=== PATIENT | male | born 1955 | race African-American/Black ===

== ENCOUNTER 2019-06-20 11:30 | Emergency (ER) | payer MEDICARE ==
--- NOTE | 2019-06-20 12:29 | ED ---
Abdominal Pain/Male - HPI Summary HPI Summary: Pt. is a 64 y.o male who presents to the ER for a painful mass to his abdomen for about 4 weeks. Pt. states mass is getting larger. He denies fever, chills, chest pain, N/V. Pt. notes hx of HTN and hep C but states he stopped taking all his medications and does not see his PCP anymore. Symptoms are moderate in severity. Movement makes sxs worse. Nothing makes sxs better. - History of Current Complaint Chief Complaint: EDRashSkinAbscess Stated Complaint: KNOT ON ABDOMEN PER PT Time Seen by Provider: 06/20/19 12:11 Hx Obtained From: Patient Pain Intensity: 7 - Allergies/Home Medications Allergies/Adverse Reactions: Allergies Allergy/AdvReac Type Severity Reaction Status Date / Time acetaminophen [From Percocet] Allergy Unknown Verified 06/20/19 11:49 Reaction Details oxycodone [From Percocet] Allergy Unknown Verified 06/20/19 11:49 Reaction Details Home Medications: Home Medications NK [No Home Medications Reported] 06/20/19 [History Confirmed 06/20/19] PMH/Surg Hx/FS Hx/Imm Hx Previously Healthy: Yes Endocrine/Hematology History: Denies: Hx Diabetes Cardiovascular History: Reports: Hx Angina, Hx Hypertension Infectious Disease History: No Infectious Disease History: Reports: Hx Hepatitis - WAS TREATED Denies: Traveled Outside the [place] in Last 30 Days - Family History Known Family History: Positive: Non-Contributory - Social History Occupation: Unemployed Lives: With Family Alcohol Use: None Substance Use Type: Reports: None Smoking Status (MU): Current Every Day Smoker Type: Cigarettes Amount Used/How Often: 4-5 /DAY Have You Smoked in the Last Year: Yes Review of Systems Constitutional: Negative Negative: Fever, Chills Cardiovascular: Negative Respiratory: Negative Gastrointestinal: Other - painful mass RUQ Negative: Vomiting, Diarrhea All Other Systems Reviewed And Are Negative: Yes Physical Exam Triage Information Reviewed: Yes Vital Signs On Initial Exam: Initial Vitals Temp Pulse Resp BP Pulse Ox 97.6 F 103 16 144/82 97 06/20/19 11:42 06/20/19 11:42 06/20/19 11:42 06/20/19 11:42 06/20/19 11:42 Vital Signs Reviewed: Yes Appearance: Positive: Well-Appearing - Pt. lying in bed in NAD. Pleasant. Skin: Positive: Warm, Dry Head/Face: Positive: Normal Head/Face Inspection Eyes: Positive: Normal, EOMI Neck: Positive: Supple Respiratory/Lung Sounds: Positive: Clear to Auscultation, Breath Sounds Present Cardiovascular: Positive: Normal, RRR Abdomen Description: Positive: Other: - Mild distention. Palpable, tender mass about the size of a golf ball noted to the RUQ region. No overlying erythema. No drainge or wound. Musculoskeletal: Positive: Normal, Strength/ROM Intact Neurological: Positive: Normal, CN Intact II-III Psychiatric: Positive: Affect/Mood Appropriate Diagnostics - Vital Signs Vital Signs Temp Pulse Resp BP Pulse Ox 06/20/19 11:42 97.6 F 103 16 144/82 97 - Laboratory Result Diagrams: 06/20/19 13:10 06/20/19 13:10 Lab Statement: Any lab studies that have been ordered have been reviewed, and results considered in the medical decision making process. Abdominal Pain Male Course/Dx - Course Course Of Treatment: Pt. presenting with painful nodule to RUQ. He is afebrile. Pt. appears to be in a lot of pain with just changing from lying to sitting. Will obtain u/s for further evaluation. Suspect possible abscess vs mass. U/S per radiology: IMPRESSION: Palpable mass corresponds to a solid lesion measuring up to 2.1 cm and is. rounded. Will order CT and labs for further information. Labs show leukocytosis of [address] ab[address]./pelvis per radiology: IMPRESSION: Large mass in the dome of the liver with what appears to be extension into the. portal venous system consistent with tumor thrombus. This is suggestive of hepatocellular. carcinoma. Duane hepatis adenopathy is noted with portal caval lymph nodes and lymph nodes at the. celiac axis posterior to the caudate lobe measuring up to 3.7 cm. Subcutaneous nodule in the right upper quadrant measuring up to 2.1 cm suspicious for. metastatic disease. Case discussed with pt. Pt. notes he has no family or support in the area. Pt. still having a lot of pain. Concerned with pt.'s compliance to f.u in an outpt. setting. Case discussed with hospitalist, Dr. Richardson, who will admit for pain control and oncology consult. - Diagnoses Provider Diagnoses: Hepatocarcinoma Discharge - Sign-Out/Discharge Documenting (check all that apply): Patient Departure Patient Received Moderate/Deep Sedation with Procedure: No - Discharge Plan Condition: Stable Disposition: ADMITTED TO [facility] Referrals: Mona Richardson MD [Primary Care Provider] - - Billing Disposition and Condition Condition: STABLE Disposition: Admitted to [facility]
[2019-06-20 13:33] LABS: ABS Basophils 0.4 10^3/ul (0-0.2); ABS Lymphocytes 1.4 10^3/ul (1.0-4.8); ABS Monocytes 1.2 10^3/ul (0-0.8); ABS Neutrophils 11.9 10^3/ul (1.5-7.7); Eosinophil % 0.2 %; Hematocrit 34 % (42-52); Hemoglobin 11.1 g/dL (14.0-18.0); Lymphocyte % 9.5 %; Mean Corpuscular HGB Conc 32 g/dL (31-36); Mean Corpuscular Hemoglobin 28 pg (27-31); Mean Corpuscular Volume 87 fL (80-94); Mean Platelet Volume 6.6 fL (7.4-10.4); Nucleated Red Blood Cells % 0.1; Platelet Count 497 10^3/uL (150-450); Red Blood Count 3.94 10^6 /uL (4.18-5.48); Red Cell Distribution Width 18 % (10-15)
[2019-06-20 13:49] LABS: Albumin 3.8 g/dL (3.2-5.2); Albumin/Globulin Ratio 0.7 (1-3); BUN/Creatinine Ratio 12.8 (8-20); C Reactive Protein 22.12 mg/L (<8.01); Calcium 9.4 mg/dL (8.6-10.3); EGFR African American 82.4 (>60); EGFR Non-African American 68.1 (>60); Globulin 5.8 g/dL (2-4); Potassium 4.4 mmol/L (3.5-5.0); Total Bilirubin 0.4 mg/dL (0.2-1.0); Total Protein 9.6 g/dL (6.4-8.9)
[2019-06-20] MEDS ORDERED: Iohexol 300* (CONTRAST) 10 ML SDV IV ONE ×2 (14:11→14:31)
[2019-06-20] MEDS ORDERED: Morphine 4 MG/ML VIAL (1 ml) 4 MG/ML VIAL IV ONE (15:38)
[2019-06-20] MEDS ORDERED: Ondansetron INJ* 2 MG/ML VIAL IV ONE (15:38)
[2019-06-20 16:29] LABS: Urine Appearance Clear; Urine Bacteria Absent (Absent); Urine Bilirubin Negative (Negative); Urine Blood 1+ (Negative); Urine Color Yellow; Urine Glucose Negative (Negative); Urine Ketones Negative (Negative); Urine Nitrite Negative (Negative); Urine Protein Negative (Negative); Urine Red Blood Cell 1+(3-5/hpf) (Absent); Urine Urobilinogen Negative (Negative); Urine White Blood Cell Trace(0-5/hpf) (Absent)
[2019-06-20 18:44] VITALS: BP 0/0
--- NOTE | 2019-06-20 19:04 | CONS ---
CC: Dr. Mona Richardson * CONSULTATION REPORT: DATE OF CONSULT: 06/20/19 PRIMARY CARE PROVIDER: Dr. Mona Richardson. SERVICE REQUESTING CONSULTATION: Emergency room. REASON FOR CONSULT: Abnormal CT findings. SOURCE OF INFORMATION: History obtained from interview with the patient and review of past medical records. RELIABILITY: Fair. HISTORY OF PRESENT ILLNESS: This is a 64-year-old man with past medical history of HCV, in remission in 2015 per our records; hypertension; depression; suicide attempts in 2016, but in usual state of health, lives home alone, until approximately 1 month prior he said he started to notice a lump on his abdomen that grew over the last month, became more painful and made it difficult for him to sleep. He did schedule a followup with his PCP on 06/29/19; however, he found it so uncomfortable that he decided to seek care today in the emergency room. He notes he is not taking anything for the pain. He has had no nausea, vomiting, lightheadedness, chest pain, or shortness of breath. He does not note any night sweats and it is difficult for him at this time to appreciate whether he has had weight loss or not. PAST MEDICAL HISTORY: HCV, hypertension, iron deficiency, depression, suicidal ideation. The patient is on several other medications that he is unclear about and unable to tell me anything else about his past medical history. MEDICATIONS: Medications come from [employer] [facility]. He is unclear of his medications, but tells me he takes 5 total. ALLERGIES: ACETAMINOPHEN and OXYCODONE. FAMILY HISTORY: Unknown. SOCIAL HISTORY: Smokes 1 pack per day every 4 days for many years. No alcohol. Denies IV drug use, transfusions, or tattoos. REVIEW OF SYSTEMS: As per HPI; otherwise, all other systems negative. PHYSICAL EXAM: Vitals: In the emergency room, 148/82, heart rate is 90, respiratory rate is 18, he is 96% on room air, T-max 97.6. He is a thin- appearing man, sitting up, interactive, pleasant, in no apparent distress. His oropharynx is clear. He has moist mucous membranes. He has regular rate and rhythm. His lungs are clear. Extremities are warm and well perfused. He has no clubbing, cyanosis, or edema. He has a well-circumscribed approximately 2 cm subcutaneous lesion extending from his right upper quadrant consistent with finding on CT abdomen and pelvis. He is alert and oriented x3. His cranial nerves II through XII are intact. He has no apparent anxiety, agitation, or depression and is quite pleasant. DIAGNOSTIC STUDIES/LAB DATA: Labs reviewed, notable for white blood cell count 15, hemoglobin 11, platelets 497. His total bilirubin is 0.4, his AST is 30, his ALT is 8, his alk phos is 125, his CRP is 22. His urine is bland, except for 1+ blood. Data reviewed. CT abdomen and pelvis, impression: Large mass at the dome of the liver with what appears to be extension into the portal venous system consistent with tumor thrombosis suggestive of hepatocellular carcinoma. Duane hepatis adenopathy is noted with portal caval lymph nodes and lymph nodes at the celiac axis posterior to the caudate lobe measuring 3.7 cm, a subcutaneous nodule in the right upper quadrant measuring 2.1 cm suspicious for metastatic disease. He has an ultrasound of the abdomen: Palpable mass corresponds to solid lesion measuring 2.1 cm and is rounded. Chest x-ray: No active cardiopulmonary disease. ASSESSMENT AND PLAN: This is a 64-year-old man presenting with subcutaneous abdominal mass associated with abdominal pain, found with worrisome imaging consistent with hepatocellular carcinoma extension into his portal vein. The patient at this point does not wish to stay hospitalized. Extensive conversations were had encouraging to remain hospitalized to receive optimal medical care including pain control and further investigations for a newly identified suspicious hepatocellular carcinoma. The patient is adamant that he does not want to stay today as tomorrow on Saturday, he is able to see his 2 grandchildren, ages 7 and 5, which he finds very important and especially in light of receiving this new diagnosis. He said that he is perfectly willing to come back to the emergency room on Saturday. We did discuss the risks associated with doing this; however, he is willing to start oral anticoagulation including Eliquis upon leaving the emergency room, although declines Lovenox because of the needles. I discussed with oncology group, who believes they can arrange for fine needle aspiration of the subcutaneous nodule possibly as early on Saturday. A consultation referral to Dr. Torres's office was made and will be delivered to the patient as well. Medication for Eliquis 5 mg twice daily also sent to the patient's pharmacy. Again, the patient was encouraged to stay; he is declining. However, in light of his diagnosis and starting Eliquis, I do not think this warrants a departure against medical advice. Clearly, the patient is centered as tomorrow is quite important to him and I think he will be safe. He does not understand the risks associated with leaving at this point , which we had an extensive discussion about. TIME SPENT: Greater than 60 minutes were spent on this consultation, greater than half was spent [id number] with the patient. [id number]/[facility] #: [id number] DIEGO
== END 2019-06-20 18:42 | disposition left against medical advice (07) ==
LOC: ED 11:30
DX: C22.0 Liver cell carcinoma (principal); I10 Essential (primary) hypertension; Z88.6 Allergy status to analgesic agent; Z88.5 Allergy status to narcotic agent; F17.210 Nicotine dependence, cigarettes, uncomplicated
CPT/HCPCS: 36415; 71045; 74177; 76705; 80053; 81003; 81015; 82105; 85025; 86140; 87086; 96374; 96375; 99283; J2270; J2405; Q9967

== ENCOUNTER 2019-06-22 08:36 | Inpatient (IN) | payer MEDICARE ==
[2019-06-22] MEDS ORDERED: NS 0.9% 1000 ML** 1,000 ML IV ONE (09:15)
[2019-06-22] MEDS ORDERED: Ondansetron INJ* 2 MG/ML VIAL IV ONE (09:15)
[2019-06-22] MEDS ORDERED: Morphine 4 MG/ML VIAL (1 ml) 4 MG/ML VIAL IV ONE (09:15)
--- NOTE | 2019-06-22 09:16 | ED ---
Abdominal Pain/Male - HPI Summary HPI Summary: Pt. is a 64 y.o male who presents to the ER for ongoing abd. pain after being dx with a liver mass 2 days ago. Pt. seen in ED 06/20 for abd. mass and pain and was found to have likely hepatocarcinoma with a portal tumor thrombus. Pt. was offered admission for pain control and further diagnostic studies at that time but decided he wanted to go home to see his grandchildren. Oncology consulted at that time and pt. was placed on eliquis and was to call office today for apt. Pt. presents today because pain is uncontrolled. He denies fever, cp, sob, V/D. Sxs are moderate in severity. No current modifying factors. - History of Current Complaint Chief Complaint: EDAbdPain Stated Complaint: ABD PAIN PER PT Time Seen by Provider: 06/22/19 08:52 Hx Obtained From: Patient Pain Intensity: 7 - Allergies/Home Medications Allergies/Adverse Reactions: Allergies Allergy/AdvReac Type Severity Reaction Status Date / Time oxycodone [From Percocet] Allergy Unknown Verified 06/22/19 09:09 Reaction Details PMH/Surg Hx/FS Hx/Imm Hx Previously Healthy: Yes Endocrine/Hematology History: Denies: Hx Diabetes Cardiovascular History: Reports: Hx Angina, Hx Hypertension Infectious Disease History: No Infectious Disease History: Reports: Hx Hepatitis - WAS TREATED Denies: Traveled Outside the [place] in Last 30 Days - Family History Known Family History: Positive: Non-Contributory - Social History Occupation: Retired Lives: Alone Alcohol Use: None Substance Use Type: Reports: None Smoking Status (MU): Current Every Day Smoker Type: Cigarettes Amount Used/How Often: 4-5 /DAY Have You Smoked in the Last Year: Yes Review of Systems Constitutional: Negative Negative: Fever, Chills Cardiovascular: Negative Negative: Chest Pain Respiratory: Negative Negative: Shortness Of Breath Positive: Abdominal Pain. Negative: Vomiting, Diarrhea Genitourinary: Negative Neurological: Negative All Other Systems Reviewed And Are Negative: Yes Physical Exam Triage Information Reviewed: Yes Vital Signs On Initial Exam: Initial Vitals Temp Pulse Resp BP Pulse Ox 97.8 F 98 18 143/84 95 06/22/19 08:37 06/22/19 08:37 06/22/19 08:37 06/22/19 08:37 06/22/19 08:37 Vital Signs Reviewed: Yes Appearance: Positive: Pain Distress - Pt. sitting up in bed in NAD. Tearful. Pain with any movement. Skin: Positive: Warm, Dry Head/Face: Positive: Normal Head/Face Inspection Eyes: Positive: Normal, EOMI Neck: Positive: Supple Respiratory/Lung Sounds: Positive: Clear to Auscultation, Breath Sounds Present Cardiovascular: Positive: Normal, RRR Abdomen Description: Positive: Other: - Mass noted to RUQ with pain on palpation. Neurological: Positive: Normal, CN Intact II-III Psychiatric: Positive: Affect/Mood Appropriate Diagnostics - Vital Signs Vital Signs Temp Pulse Resp BP Pulse Ox 06/22/19 09:00 106 98 06/22/19 08:58 95 139/92 99 06/22/19 08:57 97 100 06/22/19 08:37 97.8 F 98 18 143/84 95 - Laboratory Result Diagrams: 06/22/19 09:51 06/22/19 09:51 Lab Statement: Any lab studies that have been ordered have been reviewed, and results considered in the medical decision making process. Abdominal Pain Male Course/Dx - Course Course Of Treatment: Pt. presenting with ongoing abd. pain and new findings of liver mass. Pt. started on IV pain medications and labs redrawn. Case discussed with Dr. Torres, oncology, who would like pt. admitted to hospitalist and he will consult. Case discussed with Dr. Woodard who will accept pt. to her service. - Diagnoses Provider Diagnoses: Hepatocarcinoma Discharge - Sign-Out/Discharge Documenting (check all that apply): Patient Departure Patient Received Moderate/Deep Sedation with Procedure: No - Discharge Plan Condition: Stable Disposition: ADMITTED TO [facility] - Billing Disposition and Condition Condition: STABLE Disposition: Admitted to [facility]
[2019-06-22 10:14] LABS: ABS Basophils 0.5 10^3/ul (0-0.2); ABS Monocytes 1.1 10^3/ul (0-0.8); ABS Neutrophils 10.1 10^3/ul (1.5-7.7); Eosinophil % 0.1 %; Hematocrit 30 % (42-52); Hemoglobin 10.1 g/dL (14.0-18.0); Lymphocyte % 8.2 %; Mean Corpuscular HGB Conc 33 g/dL (31-36); Mean Corpuscular Hemoglobin 29 pg (27-31); Mean Corpuscular Volume 88 fL (80-94); Mean Platelet Volume 6.9 fL (7.4-10.4); Nucleated Red Blood Cells % 0.1; Platelet Count 432 10^3/uL (150-450); Red Blood Count 3.44 10^6 /uL (4.18-5.48); Red Cell Distribution Width 18 % (10-15); White Blood Count 12.8 10^3/uL (3.5-10.8)
[2019-06-22 10:18] LABS: ALT 7 U/L (7-52); AST 27 U/L (13-39); Albumin 3.4 g/dL (3.2-5.2); Albumin/Globulin Ratio 0.7 (1-3); Alkaline Phosphatase 111 U/L (34-104); Anion Gap 6 mmol/L (2-11); BUN/Creatinine Ratio 10.8 (8-20); Blood Urea Nitrogen 11 mg/dL (6-24); C Reactive Protein 31.53 mg/L (<8.01); CO2 Carbon Dioxide 24 mmol/L (22-32); Calcium 8.7 mg/dL (8.6-10.3); Chloride 101 mmol/L (101-111); EGFR Non-African American 73.5 (>60); Globulin 4.8 g/dL (2-4); Glucose 171 mg/dL (70-100); Potassium 3.9 mmol/L (3.5-5.0); Sodium 131 mmol/L (135-145); Total Protein 8.2 g/dL (6.4-8.9)
[2019-06-22] MEDS ORDERED: Morphine 4 MG/ML VIAL (1 ml) 4 MG/ML VIAL IV PRN (11:50)
[2019-06-22] MEDS ORDERED: Acetaminophen TAB* 325 MG PO PRN (11:52)
[2019-06-22] MEDS ORDERED: Ondansetron INJ* 2 MG/ML VIAL IV PRN (11:55)
[2019-06-22 12:08] LABS: Urine Appearance Cloudy; Urine Bacteria Absent (Absent); Urine Bilirubin Negative (Negative); Urine Blood 1+ (Negative); Urine Color Yellow; Urine Glucose Negative (Negative); Urine Ketones Negative (Negative); Urine Nitrite Negative (Negative); Urine Protein Negative (Negative); Urine Red Blood Cell 2+(6-10/hpf) (Absent); Urine Specific Gravity 1.009 (1.010-1.030); Urine Urobilinogen Negative (Negative); Urine White Blood Cell Trace(0-5/hpf) (Absent)
[2019-06-22] MEDS: NS 0.9% 1000 ML** 1,000 ML IV SCH (12:53)
[2019-06-22] MEDS: HYDROcodone/ACETAMIN 5-325 MG* 1 TAB PO PRN ×2 (14:30→19:36)
--- NOTE | 2019-06-22 19:31 | HP ---
CC: Dr. Mona Richardson; Dr. Torres * HISTORY AND PHYSICAL: DATE OF ADMISSION: 06/22/19 TIME OF EVALUATION: 11:40 a.m. PRIMARY CARE PROVIDER: Mona Richardson MD. CONSULTING ONCOLOGIST: Dr. Torres. CHIEF COMPLAINT: "I came back, the pain was too much." HISTORY OF PRESENT ILLNESS: Mr. Hoang is a 64-year-old male with a past medical history of hepatitis C, status post treatment; hypertension, iron deficiency, depression, suicidal ideation who presented to the emergency room with complaints of abdominal pain. He states that about a month ago, he noticed a lump growing on the right side of his abdomen and it has become larger and larger and the pain has made it hard for him to sleep. He has scheduled followup with his primary care provider for 06/29/19, but as his symptoms became worse, he presented to the emergency room at that time. His workup included a CT of the abdomen and pelvis that showed a large mass in the dome of the liver with what appears to be extension into the portal venous system consistent with a tumor thrombus. There was also a subcutaneous nodule in the right upper quadrant measuring up to 2.1 cm, suspicious for metastatic disease. There is duane hepatis adenopathy noted within the portacaval lymph nodes and lymph nodes of the celiac axis posterior to the caudate lobe measured up to 3.7 cm. The patient was offered admission at that time for pain control, anticoagulation , and further workup, but he declined. He was discharged from the emergency room and he was supposed to call Dr. Torres' s office today to schedule an appointment and to make arrangements for a biopsy , but he states that the pain became unbearable last night, so he decided to come to the emergency room and accept admission at this time. He denies fever, chills, nausea, vomiting, diarrhea, jaundice. He is not aware of any weight loss and we do not have any other admissions in the system that documented his weight. PAST MEDICAL HISTORY: 1. Hepatitis C. The patient states that he was diagnosed "a while ago" and was treated with Harvoni by Dr. Murphy. His last hepatitis C RNA in our system was undetectable in May 2015. The hepatitis C genotype was reported as 1b. 2. Hypertension. 3. Iron deficiency. 4. Depression. 5. Suicidal ideation. MEDICATION LIST: The patient was prescribed apixaban on his visit to the emergency room, but he has not filled it in and he states that he is not taking anything else. ALLERGIES: The patient has an unknown reaction to OXYCODONE. FAMILY HISTORY: Unknown. SOCIAL HISTORY: He is a smoker, 1 pack per day for many years. Denies alcohol use. No history of IV drug use, blood transfusions, or tattoos. REVIEW OF SYSTEMS: A 14-point review of systems was performed, and all the pertinent negative and positive findings are in the HPI. PHYSICAL EXAMINATION GENERAL: The patient is a pleasant elderly gentleman, sitting up in the stretcher, in no acute distress. VITAL SIGNS: Temperature 97.8, heart rate is 98, respiratory rate is 18, oxygen saturation 99% on room air, blood pressure is 139/92. HEENT: Pupils are equal. Moist mucous membranes. CHEST: Breath sounds bilaterally with no added sounds. CVS: Normal S1, S2. Regular rate and rhythm. ABDOMEN: Shows a protruding subcutaneous lesion on his right upper quadrant. The liver is enlarged and tender to palpation, but there is no guarding, no rebound. Bowel sounds are present. NEURO: He is alert and oriented x3. Able to move all 4 extremities. LABORATORY AND IMAGING DATA: CBC showed a WBC of 12.8 with hemoglobin of 10.1 , hematocrit of 30, platelets of 432 with 79% neutrophils. Chemistry showed a sodium of 131, potassium of 3.9, chloride of 101, bicarbonate 24, BUN of 11, creatinine of 1.02, glucose of 171. Lactic acid is 2.2. Calcium is 8.7. LFTs are normal except for alk phos of 111. CRP is 31.5. Urinalysis showed 1+ blood , 2+ rbc's. CT of the abdomen and pelvis with contrast done on 06/20/19 showed a large mass in the dome of the liver measuring 6.4 x 6.2 x 10.6 cm with what appears to be extension in the portal venous system, consistent with a tumor thrombus. This is suggestive of hepatocellular carcinoma. Duane hepatis adenopathy is noted with portacaval lymph nodes and lymph nodes at the celiac axis posterior to the caudate lobe measuring up to 3.7 cm. Subcutaneous nodule in the right upper quadrant measuring up to 2.1 cm suspicious for metastatic disease. ASSESSMENT AND PLAN: Mr. Hoang is a 64-year-old male with a past medical history of hepatitis C, hypertension, iron deficiency, depression, suicidal ideation who presented to the emergency room with complaints of abdominal pain, found to have a large liver mass suggestive of hepatocellular carcinoma. 1. Liver mass. The patient will be admitted for pain management and further workup. He was prescribed Eliquis on 06/20/19, but he did not fill this prescription. We will not start anticoagulation for now until we make arrangements for his liver biopsy. With his history of hepatitis C, it is very likely that this is the hepatocellular carcinoma and we will get oncology involved after the biopsy is performed. We will continue pain medication and after the biopsy, we should be able to start anticoagulation. 2. DVT prophylaxis. The patient has a score of 4 on the DVT Prophylaxis Risk Assessment Guide and he will have SCDs for now in preparation for biopsy tomorrow and after biopsy, he can be on full anticoagulation for his portal venous system thrombosis. 3. Code status is full. TIME SPENT: Approximately 60 minutes was spent with the patient interview, medical records review, physical examination to complete this admission, more than half of this time was spent [id number] with the patient and coordination of care. [id number]/[facility] #: [id number] [place]
[2019-06-22] MEDS: Enoxaparin(*) 60 MG/0.6 ML SYR SUBCUT SCH (19:37)
--- NOTE | 2019-06-22 22:10 | CONS ---
CONSULTATION REPORT: DATE OF CONSULT: 06/22/19 REASON FOR CONSULT: Hepatic mass. HISTORY OF PRESENT ILLNESS: Mr. Hoang is a 64-year-old male, whose appearance is pale. He developed pain on his right side approximately 6 weeks ago. Pain was fairly severe, but he did not want to go see a doctor. He thought he would, "tough it out." Pain got worse and worse. He started to have to sleep with a pillow on his side and then the pillow stopped working. He plays basketball and thought that he had injury with ball sports initially. Along with the pain, he started to lose his appetite. He used to have 3 square meals a day and then he went down to his eating some toast and a coffee for the whole day. He has lost approximately 25 pounds. Progressive pain caused him to come to the emergency room. He presented on 06/20/[address] and he had a CT scan of the abdomen and pelvis. Scan showed a large hepatic mass, 6.5 x 6.2 x 10.6 cm in AP dimension, located in the dome of the right liver, it extends into the portal venous system consistent with tumor thrombus. There is an enlarged celiac axis lymph node at 3.7 cm and a subcutaneous nodule in the right upper quadrant 2.1 cm corresponding to his pain. On Saturday, he was offered admission, but wanted to go home and spend some time with his grandchildren after being in the emergency room all day. He went home, but then pain continued to progress. The medicines he had were not working, so he came back to the emergency room. Because of the tumor thrombus, he was sent home on Eliquis for use as anticoagulation because he did not want to use the needle injections with Lovenox. On re-presentation, he was admitted for further evaluation. In addition to the CT scan, he had a chest x-ray without active cardiopulmonary disease. Blood work includes a white count elevated at 15,000, hemoglobin 10.1, MCV 88, RDW 18, platelets 432 and he has a left shift. Sodium is 131, glucose 171, lactic acid slightly elevated at 2.2, he has normal bilirubin at 0.4, normal AST and ALT with an alkaline phosphatase of 111 and elevated C-reactive protein , albumin 3.4. PAST MEDICAL HISTORY: 1. Hepatitis C, treated with Dr. Murphy and disease-free since 2014. 2. Hypertension. 3. Depression. 4. History of iron deficiency. MEDICATIONS: Medications on admission are: 1. Acetaminophen. 2. Percocet. 3. Morphine. 4. Ondansetron. 5. Normal saline. FAMILY HISTORY: Father of cancer and mother of cancer, but he does not know what kind; 3 siblings, no malignancy. Children are healthy. SOCIAL HISTORY: Smokes 1 pack cigarettes every 4 days, denies drinking or IV drug use. He is . His in July 2016 of leukemia. 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 REVIEW OF SYSTEMS: Fourteen-point review of systems notable for above plus fatigue over the past 4 weeks, otherwise negative. PHYSICAL EXAM: Temperature 97.6, BP 120/63, heart rate 88, respirations 16, O2 sat 96%. HEENT: Mucosa moist. No lesions. No cervical or supraclavicular lymphadenopathy. Lungs are clear to auscultation. Heart: Distant S1, S2. No murmurs, rubs, or gallops. Abdomen: He has a palpable mass in the right upper quadrant that is tender, mobile from the abdominal wall, but adherent to the skin. Abdominal exam otherwise nontender, again I cannot palpate the spleen. The liver edge is palpable. He has good bowel sounds. No inguinal lymphadenopathy. Extremities with good circulation and no edema. Neurologic: Alert and oriented x3 and grossly nonfocal. LABS: As noted above. ASSESSMENT: A 64-year-old male who presents with a large hepatic mass, celiac lymph node, and a subcutaneous nodule. Course is complicated by potential tumor thrombus extending into the portal venous system. Differential diagnosis includes hepatocellular cancer as most likely diagnosis, cholangiocarcinoma, metastatic upper gastrointestinal such as esophageal cancer , lung cancer. PLAN: 1. Fine needle aspiration tomorrow of the subcutaneous nodule for diagnosis. I would also consult Surgery as I think that most effective pain control to be removal of the chest wall lesion. 2. Therapy for HCC may include embolization to the primary tumor and systemic therapy as consolidation; first line sorafenib and if cholangiocarcinoma or metastatic adenocarcinoma, chemotherapy. 3. Until we have a diagnosis, I think anticoagulation is reasonable, but inhouse can do Lovenox 1 mg/kg subcu b.i.d. 4. Complete staging for HCC. Check AFP and check CT scan of chest, as well as PCR for HCV. 5. Leukocytosis may be tumor response and if so is a poor prognostic indicator. 6. We will continue to follow up through the hospitalization. [id number]/[facility] #: [id number] [place]
[2019-06-23] MEDS: NS 0.9% 1000 ML** 1,000 ML IV SCH ×2 (02:01→15:45)
[2019-06-23] MEDS: HYDROcodone/ACETAMIN 5-325 MG* 1 TAB PO PRN ×2 (02:15→14:14)
[2019-06-23] MEDS: Enoxaparin(*) 60 MG/0.6 ML SYR SUBCUT SCH (08:57)
[2019-06-23] MEDS ORDERED: LORazepam TAB(*) 1 MG PO ONE (13:51)
[2019-06-23 16:28] LABS: Albumin 3.3 g/dL (3.2-5.2); Calcium 8.4 mg/dL (8.6-10.3); Potassium 4.1 mmol/L (3.5-5.0); Total Bilirubin 0.4 mg/dL (0.2-1.0)
[2019-06-23 16:32] LABS: ABS Basophils 0.3 10^3/ul (0-0.2); ABS Lymphocytes 1.1 10^3/ul (1.0-4.8); ABS Neutrophils 10.7 10^3/ul (1.5-7.7); Activated Partial Thrombo Time 44.1 seconds (26.0-38.0); Eosinophil % 0.2 %; Hematocrit 28 % (42-52); Hemoglobin 9.7 g/dL (14.0-18.0); INR 1.28 (0.82-1.09); Mean Corpuscular HGB Conc 34 g/dL (31-36); Mean Corpuscular Hemoglobin 30 pg (27-31); Mean Corpuscular Volume 87 fL (80-94); Mean Platelet Volume 7.1 fL (7.4-10.4); Nucleated Red Blood Cells % 0.1; Platelet Count 426 10^3/uL (150-450); Red Blood Count 3.25 10^6 /uL (4.18-5.48); Red Cell Distribution Width 18 % (10-15); White Blood Count 13.2 10^3/uL (3.5-10.8)
[2019-06-23 16:34] LABS: Albumin/Globulin Ratio 0.7 (1-3); BUN/Creatinine Ratio 9.1 (8-20); EGFR African American 81.5 (>60); EGFR Non-African American 67.4 (>60); Globulin 4.8 g/dL (2-4); Total Protein 8.1 g/dL (6.4-8.9)
--- NOTE | 2019-06-23 18:46 | CONS ---
CC: Mona Richardson MD; Rodrigo Stinson MD * SURGICAL CONSULTATION REPORT: DATE OF CONSULT: 06/23/19 REASON FOR CONSULT: Abdominal wall mass. HISTORY OF PRESENT ILLNESS: Mr. Hoang is a 64-year-old gentleman who was admitted to [facility] on 06/22/19 with abdominal pain localized to a mass in the right upper quadrant. He had been admitted after emergency room workup reveals a large mass in the dome of the liver, extension into portal venous system, consistent with tumor thrombus. Imaging also revealed a 2.1 cm subcutaneous nodule in the right upper quadrant suspicious for metastatic disease. He was admitted for pain control, anticoagulation and additional workup. The patient had been seen in the emergency room on 06/20/19 at which time he had initially presented with the painful mass in the abdomen and he had evaluation with ultrasound and then CT scan. The CT scan had demonstrated the aforementioned mass in the dome of the liver measuring 6.4 x 6.2 cm x 10.6 cm with portal venous extension consistent with thrombus, suspicious for hepatocellular carcinoma. At that time, he had been recommended to be admitted ; however, the patient apparently refused admission and was discharged with Eliquis. He apparently never filled the prescription and never took the medication. Today, he reports he had a biopsy done of the mass. He understands he has cancer. He would accept excision of the mass, but wants to be "put out." PAST MEDICAL HISTORY: Hepatitis C, hypertension, iron deficiency, depression, suicidal ideation. PAST SURGICAL HISTORY: Laparoscopic cholecystectomy. MEDICATIONS: Home medication: Eliquis. Active Medications: 1. Morphine. 2. [place]. 3. Tylenol. 4. Zofran. 5. Pepcid. ALLERGIES: Unknown reaction to OXYCODONE. FAMILY HISTORY: Parents have , he thinks may have been diagnosed with cancer. He has 2 sons that are alive and well. SOCIAL HISTORY: Tobacco use for years. Denies alcohol or drug use. 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 He is and his of leukemia. REVIEW OF SYSTEMS: He denies fevers, chills, night sweats. He reports a 30- pound weight loss over 3 or 4 months. He denies nausea or vomiting. He denies constipation, diarrhea or blood per rectum. He reports he has "a little diabetes." He denies any thyroid disease. He denies strokes or seizures. He denies chest pain or shortness of breath. PHYSICAL EXAM: His temperature is 98 degrees, blood pressure 115/74, pulse 83, respirations 16, O2 sat 99% on room air. Head is normocephalic and atraumatic. Sclerae are anicteric. Mucous membranes are moist. His abdomen has healed scars from prior laparoscopic surgery. There is a 2 to 3 cm subcutaneous mass palpable in the right upper quadrant. It is mobile and tender. Remaining portions of the abdomen is soft and nontender. Extremities are warm without edema. DIAGNOSTIC STUDIES/LAB DATA: His WBC is 13.2, hemoglobin 9.7, hematocrit 28, platelets 428. Chemistries: Sodium 133, potassium 4.1, chloride 105, bicarb 23 , BUN 10, creatinine 1.1, glucose 121. Lactate was 1.3. Bilirubin, ALT and AST are normal. Alk phos elevated at 107. Albumin is 3.3. CT imaging of the chest was reviewed and findings significant for the above as well as the bibasilar pulmonary nodule up to 0.7 cm. IMPRESSION: A 64-year-old male with newly diagnosed hepatocellular carcinoma with painful right upper quadrant soft tissue mass consistent with metastatic lesion for which excision has been requested for pain control. PLAN/RECOMMENDATIONS: I discussed the finding with the patient. I discussed the excision and explained the indications for risks, benefits and alternatives. We discussed the need for anesthesia and again, he is requesting to be asleep for the procedure. I explained that he would be working with the anesthesiologist in order to achieve appropriate comfort during the procedure; however, I think this could reasonably be done under local MAC. OR availability is as soon as 06/24/19. Dr. Lea will be available to do the case and I did discuss this with the patient as well and he is in agreement. He will be made NPO prior to surgery and his anticoagulation should continued to be held. [id number]/[facility] #: [id number] [facility]AL HOSPITALLuis Fernando
--- NOTE | 2019-06-23 19:39 | PN ---
<Trevon Boyer - Last Filed: 06/23/19 19:29> Subjective Date of Service: 06/23/19 Interval History: Patient does not have any fresh complain but he says he has pain in RUQ.( CONTROLLED WITH MORPHINE). He is afraid of needles and wants it to be avoided. Objective Active Medications: Acetaminophen (Tylenol Tab*) 650 mg PO Q6H PRN PRN Reason: Mild pain/fever> 100.4 Hydrocodone Bitart/Acetaminophen ([place] 5-325 Tab*) 1 tab PO Q4H PRN PRN Reason: Moderate Pain Last Admin: 06/23/19 14:14 Dose: 1 tab Famotidine (Pepcid Iv*) 20 mg IV ONCE ONE Stop: 06/24/19 08:01 Morphine Sulfate (Morphine 4 Mg/Ml Vial (1 Ml)) 4 mg IV Q4H PRN PRN Reason: SEVERE PAIN Last Admin: 06/22/19 12:46 Dose: 4 mg Ondansetron HCl (Zofran Inj*) 4 mg IV Q6H PRN PRN Reason: NAUSEA Vital Signs - 8 hr 06/23/19 06/23/19 06/23/19 11:51 14:14 16:03 Temperature 98.3 F Pulse Rate 85 Respiratory 18 18 18 Rate Blood Pressure 120/60 (mmHg) O2 Sat by Pulse 98 Oximetry 06/23/19 16:21 Temperature 98.0 F Pulse Rate 83 Respiratory 16 Rate Blood Pressure 115/74 (mmHg) O2 Sat by Pulse 99 Oximetry Oxygen Devices in Use Now: None Exam: Patient is sitting on his bed and eating lunch. HEENT: Normocephalic, Atraumatic and pupils are normal. Heart: Normal heart sound heard. Lungs: Normal breath sound heard. Abdomen: Small swelling in RUQ- Tenderness present, not mobile, adhered to skin. Abdomen was firm but no guarding. Normal bowel sound heard. Neuro: Alert, conscious and oriented. Moving all 4 extremities. Extremity: Normal Result Diagrams: 06/23/19 15:59 06/23/19 15:59 Assess/Plan/Problems-Billing Assessment: 64 y/o M with PMH of Hepatitis c(s/p cured), HTN, Iron deficiency anemia, depression presented with abdominal pain for a month with increased severity for 1 day, loss of appetite and weight loss. He also noticed lump in has right upper abdomen which is painful. Admitted with diagnosis of suspected Hepatocellular carcinoma with metastasis. - Patient Problems (1) Hepatocellular carcinoma Current Visit: Yes Status: Acute Code(s): C22.0 - LIVER CELL CARCINOMA SNOMED Code(s): 756665435 Comment: Complain of abdominal pain and weight loss 30 pound over 3-4 month. Lump in RUQ. FNAC done today. waiting for the result. Planned for excision of nodule tomorrow. (2) Portal vein thrombosis Current Visit: Yes Status: Acute Code(s): I81 - PORTAL VEIN THROMBOSIS SNOMED Code(s): 69078802 Comment: Seen on CT. Anticoagulation on hold for surgery. (3) DVT prophylaxis Current Visit: Yes Status: Acute Code(s): Z29.9 - ENCOUNTER FOR PROPHYLACTIC MEASURES, UNSPECIFIED SNOMED Code(s): 152618187 Comment: Ambulation. Anticoagulation on hold for surgery. (4) Full code status Current Visit: Yes Status: Acute Code(s): Z78.9 - OTHER SPECIFIED HEALTH STATUS SNOMED Code(s): 401143283 Status and Disposition: Medicine inpatient. Attending: Daphnie Escobar <Daphnie Escobar - Last Filed: 06/23/19 20:31> Objective Active Medications: Acetaminophen (Tylenol Tab*) 650 mg PO Q6H PRN PRN Reason: Mild pain/fever> 100.4 Hydrocodone Bitart/Acetaminophen ([place] 5-325 Tab*) 1 tab PO Q4H PRN PRN Reason: Moderate Pain Last Admin: 06/23/19 14:14 Dose: 1 tab Famotidine (Pepcid Iv*) 20 mg IV ONCE ONE Stop: 06/24/19 08:01 Morphine Sulfate (Morphine 4 Mg/Ml Vial (1 Ml)) 4 mg IV Q4H PRN PRN Reason: SEVERE PAIN Last Admin: 06/22/19 12:46 Dose: 4 mg Ondansetron HCl (Zofran Inj*) 4 mg IV Q6H PRN PRN Reason: NAUSEA Vital Signs - 8 hr 06/23/19 06/23/19 06/23/19 14:14 16:03 16:21 Temperature 98.0 F Pulse Rate 83 Respiratory 18 18 16 Rate Blood Pressure 115/74 (mmHg) O2 Sat by Pulse 99 Oximetry 06/23/19 19:45 Temperature 97.6 F Pulse Rate 80 Respiratory 18 Rate Blood Pressure 120/55 (mmHg) O2 Sat by Pulse 97 Oximetry Result Diagrams: 06/23/19 15:59 06/23/19 15:59 Assess/Plan/Problems-Billing Admitted yesterday. Reports improvement in pain since morphine. Only has pain over subcutaneous nodule. Eating well and having normal BMs. Reports significant fear of needles. Declined blood draws and US guided FNA today. After speaking with providers, amenable to bedside FNA by pathology for tissue diagnosis. Also states he is "ready to " if he has to and would be amenable to pall care consult for GOC discussion. vss thin man in NAD, alert and interactive rrr no mgr ctab soft, nontender, +hepatomegaly; 2cm subq tender nodule over RUQ; no pulsations no LE edema CT Chest with bibasilar predominant pulmonary nodularity concerning for metastatic disease. Upper abdominal lymphadenopathy. A/P: 64M with HCV with SVR, HTN, MDD c/b SI, re-presents with abdominal pain, with imaging concerning for metastatic liver cancer. Pending tissue dx. # Liver mass. - f/u biopsy taken 06/23 - cont pain control with bowel regimen prn - consult palliative care for GOC discussion - to undergo excision of mass by surgery 06/24 for symptom control # Portal vein thrombosis. - patient refuses any subq injections - can start on NOAC when no longer undergoing procedures No DVT PPx given OR tomorrow. Attestation Documenting Resident: Rosalind Supervising Physician: Shawn Attestation: This service has been performed in part by a resident under the direction of a teaching physician.IShawn, performed the service, or was physically present during the critical, or culver portions of the service, furnished by the resident. I participated in the management of the patient.
[2019-06-23] MEDS ORDERED: Magnesium Hydroxide LIQ* 30 ML UDC PO PRN (20:32)
[2019-06-23] MEDS ORDERED: Senna TAB PO PRN (20:32)
[2019-06-24] MEDS: HYDROcodone/ACETAMIN 5-325 MG* 1 TAB PO PRN ×2 (03:05→15:41)
[2019-06-24] MEDS ORDERED: HYDROcodone/ACETAMIN 5-325 MG* 1 TAB PO PRN (06:02)
[2019-06-24] MEDS ORDERED: HYDROmorphone INJ1* 1 MG/ML SYRINGE IV PRN (06:02)
[2019-06-24] MEDS ORDERED: DiMENhydriNATE IV* 50 MG/ML VIAL IV PUSH PRN (06:02)
[2019-06-24] MEDS ORDERED: Naloxone* 0.4 MG/ML 1 ML VIAL IV PRN (06:02)
[2019-06-24] MEDS ORDERED: fentaNYL* 50 MCG/ML 2 ML VIAL (100 MCG VIAL) IV PRN (06:02)
[2019-06-24] MEDS ORDERED: PROCHLORPERAZINE INJ 5 MG/ML 2 ML VIAL IV PRN (06:02)
[2019-06-24] MEDS ORDERED: Dexamethasone TAB* 4 MG PO ONE (06:05)
[2019-06-24] MEDS ORDERED: Ondansetron ODT TAB* 4 MG PO ONE (06:05)
[2019-06-24] MEDS ORDERED: Buffered Lidocaine 1% SYRIN* 1 ML/SYRINGE INTRADERM ONE (06:05)
[2019-06-24] MEDS: Lactated Ringers 1000 ML Bag* 1,000 ML IV SCH ×3 (07:45→20:09)
[2019-06-24] MEDS ORDERED: Famotidine IV* 10 MG/ML 2 ML (20 mg) IV ONE (08:00)
[2019-06-24] MEDS ORDERED: Dexamethasone TAB* 4 MG ONE (10:09)
[2019-06-24] MEDS ORDERED: Ondansetron ODT TAB* 4 MG ONE (10:09)
[2019-06-24] MEDS ORDERED: Famotidine IV* 10 MG/ML 2 ML (20 mg) ONE (10:09)
[2019-06-24] MEDS ORDERED: Midazolam* 1 MG/ML 5 ML VIAL (5 MG) ONE (10:20)
[2019-06-24] MEDS ORDERED: fentaNYL* 50 MCG/ML 2 ML VIAL (100 MCG VIAL) ONE (10:20)
[2019-06-24] MEDS ORDERED: KETAMINE HCL* 50 MG/ML 10 ML VIAL ONE (10:20)
[2019-06-24] MEDS ORDERED: ceFAZolin 2 GM in NS PREMIX(*) 2 GM/100 ML BAG IVPB ONE (11:18)
[2019-06-24] MEDS ORDERED: Bupivacaine 0.25% SDV PF* 10 ML VIAL INJ ONE (11:58)
[2019-06-24] MEDS ORDERED: Propofol* 500 MG/50 ML BTL ONE (12:20)
[2019-06-24] MEDS ORDERED: Propofol* 10 MG/ML 20 ML BTL ONE (12:20)
--- NOTE | 2019-06-24 12:29 | OP ---
Operative Report - Blank - Operative Report Date of Operation: 06/24/19 Note: Operative Note Preoperative Dx: right abdominal subcutaneous mass Postoperative Dx: right abdominal subcutaneous mass Procedure: excision and biopsy of subcutaneous mass Anesthesia: MAC Surgeon: Venu Assist: Freida HANEY EBL: 1cc Specimen: right abdominal subcutaneous mass Fluids: 1L LR Drains: none Findings: dictated
--- NOTE | 2019-06-24 14:39 | OP ---
DATE OF OPERATION: 06/24/19 - ROOM #[id number] DATE OF : 55 SURGEON: Eren Lea MD. PRE-OP DIAGNOSIS: Subcutaneous mass, right upper abdomen. POST-OP DIAGNOSIS: Subcutaneous mass, right upper abdomen. OPERATIVE PROCEDURE: Excision of right upper abdomen subcutaneous mass. INDICATION FOR PROCEDURE: Risks including, but not limited to bleeding or infection were explained to the patient. DESCRIPTION OF PROCEDURE: In the operating room, in the supine position, with sedation given by the anesthesiologist, the abdomen was prepped and draped in sterile fashion. Time-out was performed by indicating correct patient, correct procedure. The area was prepped and draped in sterile fashion and skin was anesthetized with plain Marcaine. An elliptical incision was made over the lesion. Some skin along with subcutaneous fat and the lesion were sharply excised from the surrounding tissue. The lesion appeared white, hard consistent with a malignancy clinically. EBL minimal. Hemostasis was intact. The wound was closed in layers using 3-0 Monocryl. Wound length was about 3 cm. Glue was applied to the skin. He tolerated the procedure well. [id number]/[facility] #: [id number] [facility]
--- NOTE | 2019-06-24 15:00 | PN ---
<Trevon Boyer - Last Filed: 06/24/19 14:51> Subjective Date of Service: 06/24/19 Interval History: Patient was just transferred from OR(excision of RUQ subcutaneous nodule). He was sedated during procedure so the patient was sleepy, drowsy and didnot want to talk. Objective Active Medications: Acetaminophen (Tylenol Tab*) 650 mg PO Q6H PRN PRN Reason: Mild pain/fever> 100.4 Hydrocodone Bitart/Acetaminophen ([place] 5-325 Tab*) 1 tab PO Q4H PRN PRN Reason: Moderate Pain Last Admin: 06/24/19 03:05 Dose: 1 tab Lactated Ringer's (Lactated Ringers 1000 Ml Bag*) 1,000 mls @ 125 mls/hr IV PER RATE PACO Last Admin: 06/24/19 10:19 Dose: 125 mls/hr Magnesium Hydroxide (Milk Of Magnesia Liq*) 30 ml PO Q6H PRN PRN Reason: CONSTIPATION Morphine Sulfate (Morphine 4 Mg/Ml Vial (1 Ml)) 4 mg IV Q4H PRN PRN Reason: SEVERE PAIN Last Admin: 06/22/19 12:46 Dose: 4 mg Ondansetron HCl (Zofran Inj*) 4 mg IV Q6H PRN PRN Reason: NAUSEA Senna (Senokot Tab*) 1 tab PO BEDTIME PRN PRN Reason: CONSTIPATION Vital Signs - 8 hr 06/24/19 06/24/19 06/24/19 07:42 08:00 12:30 Temperature 98.0 F 97.0 F Pulse Rate 79 71 Respiratory 16 18 16 Rate Blood Pressure 112/57 120/76 (mmHg) O2 Sat by Pulse 97 97 100 Oximetry 06/24/19 06/24/19 06/24/19 12:34 12:35 12:40 Temperature Pulse Rate 72 71 77 Respiratory Rate Blood Pressure 122/78 126/82 (mmHg) O2 Sat by Pulse 99 100 95 Oximetry 06/24/19 06/24/19 06/24/19 12:45 12:50 12:55 Temperature Pulse Rate 76 75 Respiratory 16 Rate Blood Pressure 136/84 137/85 132/83 (mmHg) O2 Sat by Pulse 92 91 Oximetry 06/24/19 06/24/19 06/24/19 13:00 13:02 13:05 Temperature Pulse Rate 70 77 79 Respiratory 16 Rate Blood Pressure 125/90 117/82 (mmHg) O2 Sat by Pulse 96 97 100 Oximetry 06/24/19 06/24/19 06/24/19 13:11 13:15 13:20 Temperature Pulse Rate 79 90 65 Respiratory Rate Blood Pressure 127/81 144/87 124/81 (mmHg) O2 Sat by Pulse 99 100 100 Oximetry 06/24/19 06/24/19 06/24/19 13:25 13:30 13:47 Temperature 97.5 F Pulse Rate 62 66 74 Respiratory 16 Rate Blood Pressure 107/64 124/71 148/86 (mmHg) O2 Sat by Pulse 100 99 97 Oximetry 06/24/19 14:49 Temperature 97.3 F Pulse Rate 86 Respiratory 18 Rate Blood Pressure 140/72 (mmHg) O2 Sat by Pulse 97 Oximetry Oxygen Devices in Use Now: None Exam: Patient is sleeping on a bed. Responds but he is to sleepy and does not want to talk. HEENT: Normocephalic and Atraumatic Heart: Normal heart sound heard Lung: Normal vesicular sound heard Abdomen: Incision on RUQ with no any signs of inflammation and bleed. Normal bowel sound heard. Extremities: No swelling. Neuro: Sleepy and drowsy. Result Diagrams: 06/23/19 15:59 06/23/19 15:59 Assess/Plan/Problems-Billing 64 y/o M with PMH of Hepatitis c(s/p cured), HTN, Iron deficiency anemia, depression presented with abdominal pain for a month with increased severity for 1 day, loss of appetite and weight loss. He also noticed lump in has right upper abdomen which is painful. Admitted with diagnosis of suspected Hepatocellular carcinoma with metastasis. Excision of lump done today. - Patient Problems (1) Hepatocellular carcinoma Current Visit: Yes Status: Acute Code(s): C22.0 - LIVER CELL CARCINOMA SNOMED Code(s): 043356885 Comment: Complain of abdominal pain and weight loss 30 pound over 3-4 month. Lump in RUQ. FNAC done today. waiting for the result. Subcutaneous nodules excised today. (2) Portal vein thrombosis Current Visit: Yes Status: Acute Code(s): I81 - PORTAL VEIN THROMBOSIS SNOMED Code(s): 59298878 Comment: Seen on CT. Anticoagulation on hold. STart AC tomorrow. (3) DVT prophylaxis Current Visit: Yes Status: Acute Code(s): Z29.9 - ENCOUNTER FOR PROPHYLACTIC MEASURES, UNSPECIFIED SNOMED Code(s): 535651021 Comment: Ambulation. Anticoagulation on hold. Start tomorrow. (4) Full code status Current Visit: Yes Status: Acute Code(s): Z78.9 - OTHER SPECIFIED HEALTH STATUS SNOMED Code(s): 983331332 Status and Disposition: Medicine inpatient. Attending: Daphnie Escobar <Daphnie Escobar - Last Filed: 06/25/19 13:50> Objective Active Medications: Acetaminophen (Tylenol Tab*) 650 mg PO Q6H PRN PRN Reason: Mild pain/fever> 100.4 Hydrocodone Bitart/Acetaminophen ([place] 5-325 Tab*) 1 tab PO Q4H PRN PRN Reason: Moderate Pain Last Admin: 06/25/19 05:31 Dose: 1 tab Magnesium Hydroxide (Milk Of Magnesia Liq*) 30 ml PO Q6H PRN PRN Reason: CONSTIPATION Morphine Sulfate (Morphine 4 Mg/Ml Vial (1 Ml)) 4 mg IV Q4H PRN PRN Reason: SEVERE PAIN Last Admin: 06/22/19 12:46 Dose: 4 mg Ondansetron HCl (Zofran Inj*) 4 mg IV Q6H PRN PRN Reason: NAUSEA Senna (Senokot Tab*) 1 tab PO BEDTIME PRN PRN Reason: CONSTIPATION Vital Signs - 8 hr 06/25/19 06/25/19 06/25/19 07:36 07:43 08:00 Temperature 97.6 F Pulse Rate 71 Respiratory 12 18 16 Rate Blood Pressure 136/76 (mmHg) O2 Sat by Pulse 96 Oximetry 06/25/19 11:39 Temperature 97.5 F Pulse Rate 79 Respiratory 14 Rate Blood Pressure 152/69 (mmHg) O2 Sat by Pulse 95 Oximetry Result Diagrams: 06/23/19 15:59 06/23/19 15:59 Assess/Plan/Problems-Billing Had RUQ subq nodule removed today. Pt sleepy post-op but denies pain or anxiety. vss thin man in NAD, sleepy, pleasant rrr no mgr ctab soft, nontender, +hepatomegaly; 3cm surgical site with glue, no blood or ecchymosis no LE edema A/P: 64M with HCV with SVR, HTN, MDD c/b SI, re-presents with abdominal pain, with imaging concerning for metastatic liver cancer. Pending tissue dx. # Liver mass. - f/u biopsy taken 06/23 - cont pain control with bowel regimen prn - consult palliative care for GOC discussion # Portal vein thrombosis. - patient refuses any subq injections - can start on NOAC when no longer undergoing procedures Attestation Documenting Resident: Rosalind Supervising Physician: Shawn Attestation: This service has been performed in part by a resident under the direction of a teaching physician.IShawn, performed the service, or was physically present during the critical, or culver portions of the service, furnished by the resident. I participated in the management of the patient.
[2019-06-25] MEDS: Lactated Ringers 1000 ML Bag* 1,000 ML IV SCH (05:31)
[2019-06-25] MEDS: HYDROcodone/ACETAMIN 5-325 MG* 1 TAB PO PRN (05:31)
--- NOTE | 2019-06-25 09:59 | PN ---
Progress Note - Progress Note Date of Service: 06/25/19 Note: Surgery Progress: S: POD #1. Doing well. Would like to go home. Denies much pain from RUQ site. (; only using occasional HC/APAP). Miguelangel diet. O: Vital Signs - 8 hr 06/25/19 06/25/19 06/25/19 03:29 05:31 07:36 Temperature 97.5 F 97.6 F Pulse Rate 79 71 Respiratory 16 18 12 Rate Blood Pressure 130/67 136/76 (mmHg) O2 Sat by Pulse 99 96 Oximetry 06/25/19 07:43 Temperature Pulse Rate Respiratory 18 Rate Blood Pressure (mmHg) O2 Sat by Pulse Oximetry Abd: RUQ site clean; no s/sx of infection; soft; no sig tenderness Path from initial FNA: Abdominal, right upper outer quadrant, fine needle aspiration by palpation: -- Malignant. -- Metastatic, poorly differentiated neoplasm. See comment. A: s/p FNA, then excision of painful RUQ abd wall mass, improved P: ok for d/c home from surgical standpoint; instructions re: activity and wound care reviewed verbally and written in d/c instructions; surgical f/u prn
[2019-06-25 11:40] VITALS: BP 152/69
--- NOTE | 2019-06-25 11:51 | CONSULT ---
Palliative / Hospice Consult Ordering Provider: Daphnie Escobar - PCP-[place] [facility] Reason: Goals of care discussion - Subjective Code Status: Full Code Advance Directives Location: No Advance Directives - History or Present Illness History or Present Illness: 64 yo male presented with abdominal pain. PMH is significant for hep C treated with Harvoni, HTN, Fe deficiency, depression with suicidal ideation in the past. 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 Studies Abd U/S showed mass in abd wall, Chest CT-bibasilar nodularity in the lungs, lymphadenopathy & liver mass., H/H 9.7/28, plt 426, BUN /Cr 10/1.10, egfr 63.4, Ca 8.4, alt 107, tprot 8.1, alb 3.3 and INR 1.28. Pt admitted for abdominal pain, superficial mass was removed and awaiting pathology report. Pt to follow up with oncology. Lab Values: Abnormal Lab Results 06/22/19 06/22/19 19:46 19:46 Tumor Marker AFP 38 H Hepatitis C RNA Quant Undetected Laboratory Last Values WBC 13.2 10^3/uL (3.5-10.8) H 06/23/19 15:59 RBC 3.25 10^6 /uL (4.18-5.48) L 06/23/19 15:59 Hgb 9.7 g/dL (14.0-18.0) L 06/23/19 15:59 Hct 28 % (42-52) L 06/23/19 15:59 MCV 87 fL (80-94) 06/23/19 15:59 MCH 30 pg (27-31) 06/23/19 15:59 MCHC 34 g/dL (31-36) 06/23/19 15:59 RDW 18 % (10-15) H 06/23/19 15:59 Plt Count 426 10^3/uL (150-450) 06/23/19 15:59 MPV 7.1 fL (7.4-10.4) L 06/23/19 15:59 Neut % (Auto) 81.4 % 06/23/19 15:59 Lymph % (Auto) 8.0 % 06/23/19 15:59 [place] % (Auto) 7.9 % 06/23/19 15:59 Eos % (Auto) 0.2 % 06/23/19 15:59 Baso % (Auto) 2.5 % 06/23/19 15:59 Absolute Neuts (auto) 10.7 10^3/ul (1.5-7.7) H 06/23/19 15:59 Absolute Lymphs (auto) 1.1 10^3/ul (1.0-4.8) 06/23/19 15:59 Absolute Monos (auto) 1.0 10^3/ul (0-0.8) H 06/23/19 15:59 Absolute Eos (auto) 0.0 10^3/ul (0-0.6) 06/23/19 15:59 Absolute Basos (auto) 0.3 10^3/ul (0-0.2) H 06/23/19 15:59 Absolute Nucleated RBC 0.0 10^3/ul 06/23/19 15:59 Nucleated RBC % 0.1 06/23/19 15:59 INR (Anticoag Therapy) 1.28 (0.82-1.09) H 06/23/19 15:59 APTT 44.1 seconds (26.0-38.0) H 06/23/19 15:59 Sodium 133 mmol/L (135-145) L 06/23/19 15:59 Potassium 4.1 mmol/L (3.5-5.0) 06/23/19 15:59 Chloride 105 mmol/L (101-111) 06/23/19 15:59 Carbon Dioxide 23 mmol/L (22-32) 06/23/19 15:59 Anion Gap 5 mmol/L (2-11) 06/23/19 15:59 BUN 10 mg/dL (6-24) 06/23/19 15:59 Creatinine 1.10 mg/dL (0.67-1.17) 06/23/19 15:59 Est GFR ( Amer) 81.5 (>60) 06/23/19 15:59 Est GFR (Non-Af Amer) 67.4 (>60) 06/23/19 15:59 BUN/Creatinine Ratio 9.1 (8-20) 06/23/19 15:59 Glucose 121 mg/dL (70-100) H 06/23/19 15:59 Lactic Acid 1.3 mmol/L (0.5-2.0) 06/23/19 15:59 Calcium 8.4 mg/dL (8.6-10.3) L 06/23/19 15:59 Total Bilirubin 0.40 mg/dL (0.2-1.0) 06/23/19 15:59 AST 25 U/L (13-39) 06/23/19 15:59 ALT 7 U/L (7-52) 06/23/19 15:59 Alkaline Phosphatase 107 U/L (34-104) H 06/23/19 15:59 C-Reactive Protein 31.53 mg/L (<8.01) H 06/22/19 09:51 Total Protein 8.1 g/dL (6.4-8.9) 06/23/19 15:59 Albumin 3.3 g/dL (3.2-5.2) 06/23/19 15:59 Globulin 4.8 g/dL (2-4) H 06/23/19 15:59 Albumin/Globulin Ratio 0.7 (1-3) L 06/23/19 15:59 Lipase < 10 U/L (11.0-82.0) L 06/22/19 09:51 Tumor Marker AFP 38 ng/mL (<6.0) H 06/22/19 19:46 Urine Color Yellow 06/22/19 11:31 Urine Appearance Cloudy 06/22/19 11:31 Urine pH 6.0 (5-9) 06/22/19 11:31 Ur Specific [place] 1.009 (1.010-1.030) L 06/22/19 11:31 Urine Protein Negative (Negative) 06/22/19 11:31 Urine Ketones Negative (Negative) 06/22/19 11:31 Urine Blood 1+ (Negative) A 06/22/19 11:31 Urine Nitrate Negative (Negative) 06/22/19 11:31 Urine Bilirubin Negative (Negative) 06/22/19 11:31 Urine Urobilinogen Negative (Negative) 06/22/19 11:31 Ur Leukocyte Esterase Negative (Negative) 06/22/19 11:31 Urine WBC (Auto) Trace(0-5/hpf) (Absent) 06/22/19 11:31 Urine RBC (Auto) 2+(6-10/hpf) (Absent) A 06/22/19 11:31 Urine Bacteria Absent (Absent) 06/22/19 11:31 Urine Glucose Negative (Negative) 06/22/19 11:31 Hepatitis C RNA Quant Undetected IU/mL (Undetected) 06/22/19 19:46 - Objective Active Medications: Acetaminophen (Tylenol Tab*) 650 mg PO Q6H PRN PRN Reason: Mild pain/fever> 100.4 Hydrocodone Bitart/Acetaminophen (Deville 5-325 Tab*) 1 tab PO Q4H PRN PRN Reason: Moderate Pain Last Admin: 06/25/19 05:31 Dose: 1 tab Lactated Ringer's (Lactated Ringers 1000 Ml Bag*) 1,000 mls @ 125 mls/hr IV PER RATE PACO Last Admin: 06/25/19 05:31 Dose: 125 mls/hr Magnesium Hydroxide (Milk Of Magnesia Liq*) 30 ml PO Q6H PRN PRN Reason: CONSTIPATION Morphine Sulfate (Morphine 4 Mg/Ml Vial (1 Ml)) 4 mg IV Q4H PRN PRN Reason: SEVERE PAIN Last Admin: 06/22/19 12:46 Dose: 4 mg Ondansetron HCl (Zofran Inj*) 4 mg IV Q6H PRN PRN Reason: NAUSEA Senna (Senokot Tab*) 1 tab PO BEDTIME PRN PRN Reason: CONSTIPATION Vital Signs: Vital Signs: Temp Pulse Resp BP Pulse Ox 97.6 F 71 16 136/76 96 06/25/19 07:36 06/25/19 07:36 06/25/19 08:00 06/25/19 07:36 06/25/19 07:36 Patient Weight: Weight 68.039 kg Intake and Output: Intake & Output 06/23/19 06/24/19 06/25/19 06/26/19 06:59 06:59 06:59 06:59 Intake Total 2787 2287 4920 730 Output Total 4504 926 1076 Balance 1487 1387 2445 730 Weight 68.039 kg 68.039 kg Intake: IV Fluids 1767 1127 2960 LR 2960 NS (0.9%) 767 IVPB 0 NS (0.9%) 0 Oral 1020 1160 1960 730 Output: Urine 6949 341 0847 Other: Estimated Void Large Large Medium Medium Date of Last Bowel 06/21/19 Movement # Bowel Movements 0 0 Estimated Blood Loss min Comment # Voids 1 1 1 ADLs: Meal Record Start: 06/22/19 12: 31 Freq: Status: Active Protocol: Created 06/22/19 12:31 System (Rec: 06/22/19 12:31 System SSU-C12) Document 06/22/19 14:31 [id number] (Rec: 06/22/19 14:32 [id number] SSU-L03) Document 06/23/19 11:51 [id number] (Rec: 06/23/19 11:55 [id number] SSU-M18) Document 06/24/19 15:45 [id number] (Rec: 06/24/19 15:45 [id number] SSU-M13) Document 06/25/19 09:13 [id number] (Rec: 06/25/19 09:13 [id number] SSU-C10) Intake and Output Start: 06/22/19 08: 49 Freq: Status: Active Protocol: Created 06/22/19 08:49 System (Rec: 06/22/19 08:49 System ED-C24) Document 06/23/19 14:25 [id number] (Rec: 06/23/19 14:26 [id number] SSU-C01) Document 06/24/19 20:34 [id number] (Rec: 06/24/19 20:35 [id number] SSU-M17) Intake and Output Start: 06/22/19 12: 31 Freq: DAILY@0600,1400,2200 Status: Active Protocol: Created 06/22/19 12:31 System (Rec: 06/22/19 12:31 System SSU-C12) Document 06/22/19 14:00 [id number] (Rec: 06/22/19 14:30 [id number] SSU-L03) Document 06/22/19 18:21 [id number] (Rec: 06/22/19 18:21 [id number] SSU-C12) Document 06/22/19 22:53 [id number] (Rec: 06/22/19 22:55 [id number] SSU-M18) Document 06/23/19 05:15 UNQ2214 (Rec: 06/23/19 05:15 [id number] SSU-M14) Document 06/23/19 06:01 [id number] (Rec: 06/23/19 06:01 [id number] SSU-M13) Document 06/23/19 11:51 [id number] (Rec: 06/23/19 11:55 [id number] SSU-M18) Document 06/23/19 14:25 [id number] (Rec: 06/23/19 14:26 LJS4423 SSU-C01) Document 06/23/19 19:30 [id number] (Rec: 06/23/19 21:01 [id number] SSU-C03) Document 06/23/19 22:12 [id number] (Rec: 06/23/19 22:12 [id number] SSU-M18) Document 06/24/19 02:52 [id number] (Rec: 06/24/19 02:52 [id number] SSU-M06) Document 06/24/19 06:00 [id number] (Rec: 06/24/19 06:09 [id number] SSU-M17) Document 06/24/19 13:21 TUC2340 (Rec: 06/24/19 13:22 [id number] OR-C10) Document 06/24/19 19:47 CVM1117 (Rec: 06/24/19 19:47 [id number] SSU-M14) Document 06/24/19 22:16 SYU0946 (Rec: 06/24/19 22:16 [id number] SSU-M17) Document 06/25/19 02:05 BRC0974 (Rec: 06/25/19 02:05 [id number] SSU-M16) Document 06/25/19 03:30 [id number] (Rec: 06/25/19 03:31 [id number] SSU-M16) Document 06/25/19 05:20 [id number] (Rec: 06/25/19 05:20 [id number] SSU-M16) Document 06/25/19 06:58 [id number] (Rec: 06/25/19 06:58 RKT5546 SSU-C10) Document 06/25/19 08:24 [id number] (Rec: 06/25/19 08:24 NKF8412 SSU-C10) Document 07/25/19 10:15 [id number] (Rec: 06/25/19 10:15 [id number] SSU-C10) Ears/Nose/Mouth/Throat: NL Teeth, Lips, Gums Neck: NL Appearance and Movements; NL JVP Cardiovascular: NL Sounds; No Murmurs; No JVD Respiratory: Symmetrical Chest Expansion and Respiratory Effort, Clear to Auscultation Extremities: No Edema Neurological: Alert and Oriented x 3 - Assessment Assessment: 64yo male with metastatic disease of unknown origin, awaiting biopsy results - Plan Consult Plan (MU): Palliative Plan: Long discussion with pt about illness and goals of care. Pt's almost 3 yrs ago from leukemia after a 5yr illness. 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 She at home with 2 months of hospice. Pt is "not afraid to " but does want to pursue treatment with oncology. Not sure of prognosis without diagnosis. Gave pt information and brochure about outpatient palliative care and hospice. We also discussed MOLST form. At this point he wants to be DNR /DNI, no feeding tube but didn't want to sign form today. Pt has one son in [place] and one in [place]. 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 He will be following up with oncology as an outpatient. Can't determine hospice status without diagnosis. KPS 70%, PPS 70% - Time On Unit Date of Evaluation: 06/25/19 Hospice Consult Time in: 10:45 Hospice Consult Time Out: 12:15 Hospice Consult Time Total: 90 > 50% of Time Spend In Counseling or Coordinating Care: Yes
--- NOTE | 2019-06-25 19:05 | DS ---
Resident Discharge Summary Discharge Summary: Date of Admission: 06/23/19 Date of Discharge: 06/25/19 Admitting MD: Tanisah Woodard MD Attending MD: Daphnie Escobar MD Primary Care Physician: Mona Richardson MD Home Medications Apixaban* [Eliquis*] 5 mg PO BID #28 tab 06/20/19 [Rx Confirmed 06/22/19] HYDROcodone/ACETAMIN 5-325 MG* [Antlers 5-325 TAB*] 1 tab PO Q4H PRN #20 tab MDD 4 tablets 06/25/19 [Rx] Disposition: Home Condition: Improved Primary Diagnosis: 1. Excision of abdominal wall mass on 06/24/2019 2. Metastatic cancer, likely form liver. 3. Portal vein thrombosis. Diagnostic Imaging: Chest CT: Bibasilar pulmonary nodularity concernng for metastasis. Indistinct soft tissue attenuation between mid descending thoracic aorta. Redomstrates liver metastasis, upper abdominal lymphadenopathy and right upper subcutaneous mass. Cytology of upper abdominal nodule: Malignancy; poorly differentiated. Pertinent Laboratory Results: Laboratory Last Values WBC 13.2 10^3/uL (3.5-10.8) H 06/23/19 15:59 RBC 3.25 10^6 /uL (4.18-5.48) L 06/23/19 15:59 Hgb 9.7 g/dL (14.0-18.0) L 06/23/19 15:59 Hct 28 % (42-52) L 06/23/19 15:59 MCV 87 fL (80-94) 06/23/19 15:59 MCH 30 pg (27-31) 06/23/19 15:59 MCHC 34 g/dL (31-36) 06/23/19 15:59 RDW 18 % (10-15) H 06/23/19 15:59 Plt Count 426 10^3/uL (150-450) 06/23/19 15:59 MPV 7.1 fL (7.4-10.4) L 06/23/19 15:59 Neut % (Auto) 81.4 % 06/23/19 15:59 Lymph % (Auto) 8.0 % 06/23/19 15:59 [place] % (Auto) 7.9 % 06/23/19 15:59 Eos % (Auto) 0.2 % 06/23/19 15:59 Baso % (Auto) 2.5 % 06/23/19 15:59 Absolute Neuts (auto) 10.7 10^3/ul (1.5-7.7) H 06/23/19 15:59 Absolute Lymphs (auto) 1.1 10^3/ul (1.0-4.8) 06/23/19 15:59 Absolute Monos (auto) 1.0 10^3/ul (0-0.8) H 06/23/19 15:59 Absolute Eos (auto) 0.0 10^3/ul (0-0.6) 06/23/19 15:59 Absolute Basos (auto) 0.3 10^3/ul (0-0.2) H 06/23/19 15:59 Absolute Nucleated RBC 0.0 10^3/ul 06/23/19 15:59 Nucleated RBC % 0.1 06/23/19 15:59 INR (Anticoag Therapy) 1.28 (0.82-1.09) H 06/23/19 15:59 APTT 44.1 seconds (26.0-38.0) H 06/23/19 15:59 Sodium 133 mmol/L (135-145) L 06/23/19 15:59 Potassium 4.1 mmol/L (3.5-5.0) 06/23/19 15:59 Chloride 105 mmol/L (101-111) 06/23/19 15:59 Carbon Dioxide 23 mmol/L (22-32) 06/23/19 15:59 Anion Gap 5 mmol/L (2-11) 06/23/19 15:59 BUN 10 mg/dL (6-24) 06/23/19 15:59 Creatinine 1.10 mg/dL (0.67-1.17) 06/23/19 15:59 Est GFR ( Amer) 81.5 (>60) 06/23/19 15:59 Est GFR (Non-Af Amer) 67.4 (>60) 06/23/19 15:59 BUN/Creatinine Ratio 9.1 (8-20) 06/23/19 15:59 Glucose 121 mg/dL (70-100) H 06/23/19 15:59 Lactic Acid 1.3 mmol/L (0.5-2.0) 06/23/19 15:59 Calcium 8.4 mg/dL (8.6-10.3) L 06/23/19 15:59 Total Bilirubin 0.40 mg/dL (0.2-1.0) 06/23/19 15:59 AST 25 U/L (13-39) 06/23/19 15:59 ALT 7 U/L (7-52) 06/23/19 15:59 Alkaline Phosphatase 107 U/L (34-104) H 06/23/19 15:59 C-Reactive Protein 31.53 mg/L (<8.01) H 06/22/19 09:51 Total Protein 8.1 g/dL (6.4-8.9) 06/23/19 15:59 Albumin 3.3 g/dL (3.2-5.2) 06/23/19 15:59 Globulin 4.8 g/dL (2-4) H 06/23/19 15:59 Albumin/Globulin Ratio 0.7 (1-3) L 06/23/19 15:59 Lipase < 10 U/L (11.0-82.0) L 06/22/19 09:51 Tumor Marker AFP 38 ng/mL (<6.0) H 06/22/19 19:46 Urine Color Yellow 06/22/19 11:31 Urine Appearance Cloudy 06/22/19 11:31 Urine pH 6.0 (5-9) 06/22/19 11:31 Ur Specific [place] 1.009 (1.010-1.030) L 06/22/19 11:31 Urine Protein Negative (Negative) 06/22/19 11:31 Urine Ketones Negative (Negative) 06/22/19 11:31 Urine Blood 1+ (Negative) A 06/22/19 11:31 Urine Nitrate Negative (Negative) 06/22/19 11:31 Urine Bilirubin Negative (Negative) 06/22/19 11:31 Urine Urobilinogen Negative (Negative) 06/22/19 11:31 Ur Leukocyte Esterase Negative (Negative) 06/22/19 11:31 Urine WBC (Auto) Trace(0-5/hpf) (Absent) 06/22/19 11:31 Urine RBC (Auto) 2+(6-10/hpf) (Absent) A 06/22/19 11:31 Urine Bacteria Absent (Absent) 06/22/19 11:31 Urine Glucose Negative (Negative) 06/22/19 11:31 Hepatitis C RNA Quant Undetected IU/mL (Undetected) 06/22/19 19:46 Hospital Course: Mr. Hoang is a 64-year-old male with HCV s/p SVR, iron deficiency, depression , who presented to the emergency room with complaints of abdominal pain. He states that about a month ago, he noticed a lump growing on the right side of his abdomen and it has become larger and larger and the pain has made it hard for him to sleep. He had scheduled followup with his primary care provider but as his symptoms became worse, he presented to the emergency room at that time. His workup included a CT of the abdomen and pelvis that showed a large mass in the dome of the liver with what appears to be extension into the portal venous system consistent with a tumor thrombus. There was also a subcutaneous nodule in the right upper quadrant measuring up to 2.1 cm, suspicious for metastatic disease. There is aminah hepatis adenopathy noted within the portacaval lymph nodes and lymph nodes of the celiac axis posterior to the caudate lobe measured up to 3.7 cm. The patient was offered admission at that time for pain control, anticoagulation , and further workup, but he declined. He was discharged from the emergency room and he was supposed to call Dr. Torres's office today to schedule an appointment and to make arrangements for a biopsy, but he states that the pain became unbearable last night, so he decided to come to the emergency room and accept admission at this time. During this admission, the patient declined further blood draw or IV medications. His pain was well controlled with [place]. He underwent bedside FNA of subcutaneous mass by pathology (06/23) and then excision of the mass by surgery for pain control (on 06/24). On day of discharge, patient reported no symptoms. He met with the palliative care team and discussed goals of care. He is taking a MOLST form home to fill out. His a few years ago on hospice, and while he's still interested in learning his treatment options, he is aware of palliative care services, as well. Follow Up Instructions: As tolerated but avoid strenous exercise for 10 days. No scrubbing on wound area. May shower. If any concern for wound call [facility]. F/U with PCP in 1-2 weeks. F/U with Dr. Torres on 07/03/2019 for 1-2 weeks. In case of an emergency or after clinic hours, please go to your nearest Emergency Department. You may also call the [facility] typesetting machine operator/tender at .
== END 2019-06-25 14:39 | disposition home or self-care (01) | DRG 423 ==
LOC: ED 08:36 → UNDOADMOB 11:42 → SSU 11:42 → OBSVTOIN 06-23 11:00 → SSU 06-25 00:20
PROVIDERS: ADMIT Internal Medicine; ATTEND Internal Medicine
PROC: 0JB83ZX Excision of Abdomen Subcutaneous Tissue and Fascia, Percutaneous Approach, Diagnostic (ICD-10-PCS; 2019-06-23)
PROC: 0FB03ZX Excision of Liver, Percutaneous Approach, Diagnostic (ICD-10-PCS; 2019-06-23)
PROC: 0JB80ZZ Excision of Abdomen Subcutaneous Tissue and Fascia, Open Approach (ICD-10-PCS; principal; 2019-06-24 12:15)
DX: C22.0 Liver cell carcinoma (principal); I81 Portal vein thrombosis; C79.2 Secondary malignant neoplasm of skin; F17.210 Nicotine dependence, cigarettes, uncomplicated; F32.9 Major depressive disorder, single episode, unspecified; I10 Essential (primary) hypertension; Z86.19 Personal history of other infectious and parasitic diseases; Z80.9 Family history of malignant neoplasm, unspecified; Z88.5 Allergy status to narcotic agent; Z90.49 Acquired absence of other specified parts of digestive tract
CPT/HCPCS: 10021; 36415; 71250; 80053; 81003; 81015; 82105; 83605; 83690; 85025; 85610; 85730; 86140; 87086; 87522; 88172; 88173; 88305; 88341; 88342; 88360; 99284; 99406; A9270-GY; G0378; J0690; J1650; J2250; J2270; J2405; J2704; J3010; J3490; J8540

== ENCOUNTER 2019-10-08 08:06 | Emergency (ER) | payer MEDICARE ==
--- NOTE | 2019-10-08 08:17 | ED ---
Abdominal Pain/Male - HPI Summary HPI Summary: Patient is a 64-year-old -[place] man with a past medical history of metastatic hepatocellular carcinoma. Patient came into the emergency department today with a chief complaint of pain along his left side. Patient is a poor historian. Stepdaughter and his 2 sons are at the bedside. Patient says his pain as being worse although this is chronic pain which she has had over the last few months. He states at this point it is a 10 out of 10 pain with no radiation. Patient has not taken any medication prior to arrival for alleviation of symptoms. He is excessively weak over the last month and has recently developed shortness of breath. Patient is a patient of [facility] however has been noncompliant with appointments and treatment due to being unable to make it to his oncology appointment. His stepdaughter says he has not been taking his prescribed 10 mg of oxycodone for pain but has been smoking marijuana for pain relief. Patient says he has a diminished appetite and eats one small meal a day. He reports a 50 pound weight loss in the last 4 months. Patient denies headache, changes in vision, fever, chest pain, difficulty with urination, difficulty with bowel movements, pain with bowel movements, cough. 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 - Stepdaughter and 2 sons are present Onset/Duration: Gradual Onset, Worse Since - 1 week ago, Other - Lasting months Timing: Constant Severity Initially: Severe Severity Currently: Severe Pain Intensity: 9 Pain Scale Used: 0-10 Numeric Location: Other - On the left chest and abdomen Radiates: No Character: Dull Aggravating Factor(s): Nothing Alleviating Factor(s): Nothing Associated Signs And Symptoms: Positive: Back Pain - Allergies/Home Medications Allergies/Adverse Reactions: Allergies Allergy/AdvReac Type Severity Reaction Status Date / Time oxycodone [From Percocet] Allergy Unknown Verified 10/08/19 08:08 Reaction Details Home Medications: Home Medications Lisinopril TAB* [Prinivil TAB*] 10 mg PO DAILY 10/08/19 [History Confirmed 10/08] Prochlorperazine Maleate 10 mg PO Q6H PRN 10/08/19 [History Confirmed 10/08/19] PMH/Surg Hx/FS Hx/Imm Hx Endocrine/Hematology History: Reports: Hx Anemia Denies: Hx Diabetes Cardiovascular History: Reports: Hx Angina, Hx Hypertension Sensory History: Denies: Hx Contacts or Glasses, Hx Hearing Aid Opthamlomology History: Denies: Hx Contacts or Glasses Psychiatric History: Denies: Hx Eating Disorder - Cancer History Cancer Type, Location and Year: LIVER - Surgical History Surgery Procedure, Year, and Place: [facility] 10[facility] yrs. SUBCATANEOUS MALIGNANT RUQ ABD MASS EXCISED Hx Anesthesia Reactions: No Infectious Disease History: No Infectious Disease History: Reports: Hx Hepatitis - hep c WAS TREATED Denies: Traveled Outside the [place] in Last 30 Days - Family History Known Family History: Positive: Non-Contributory - Social History Alcohol Use: None Substance Use Type: Reports: None Smoking Status (MU): Current Some Day Smoker Type: Cigarettes Amount Used/How Often: 4-5 /DAY Have You Smoked in the Last Year: Yes Review of Systems Positive: Fatigue - for 4 months Positive: Other Cardiovascular: Negative Positive: Shortness Of Breath - worse since one week Positive: Abdominal Pain - for 1 week Genitourinary: Negative Positive: Myalgia - for 4 months Skin: Negative Positive: Weakness - for 4 months Psychological: Normal All Other Systems Reviewed And Are Negative: Yes Physical Exam Triage Information Reviewed: Yes Vital Signs On Initial Exam: Initial Vitals Temp Pulse Resp BP Pulse Ox 97 F 105 18 130/89 96 10/08/19 08:07 10/08/19 08:07 10/08/19 08:07 10/08/19 08:07 10/08/19 08:07 Vital Signs Reviewed: Yes Appearance: Positive: Ill-Appearing, Pain Distress, Thin Skin: Positive: Warm, Skin Color Reflects Adequate Perfusion Head/Face: Positive: Normal Head/Face Inspection Eyes: Positive: Normal, EOMI, SHAHLA, Conjunctiva Clear Neck: Positive: Enlarged Nodes @ - Multiple hard very large immobile lymph nodes are noted bilaterally to the posterior cervical chain Respiratory/Lung Sounds: Positive: Breath Sounds Present, Rales - Rales noted to the left lung base Cardiovascular: Positive: Murmur - Murmur noted with auscultation, S1, S2 Abdomen Description: Positive: Distended, Guarding, Other: - Large right-sided abdominal mass noted in the area of the liver Bowel Sounds: Positive: Present Neurological: Positive: Sensory/Motor Intact, Normal Gait Psychiatric: Positive: Normal AVPU Assessment: Alert Procedures - Sedation Patient Received Moderate/Deep Sedation with Procedure: No Diagnostics - Vital Signs Vital Signs Temp Pulse Resp BP Pulse Ox 10/08/19 08:07 97 F 105 18 130/89 96 - Laboratory Result Diagrams: 10/08/19 08:53 10/08/19 08:53 Lab Statement: Any lab studies that have been ordered have been reviewed, and results considered in the medical decision making process. Re-Evaluation - Re-Evaluation First Eval Change: Improved - Patient's symptoms improved significantly after given IV fentanyl. Abdominal Pain Male Course/Dx - Course Course Of Treatment: Patient was evaluated for acute on chronic pain which has progressively gotten worse for the last week as well as new onset shortness of breath which began throughout the last week as well. Patient was seen and examined by this signwriter and the attending emergency room physician . Patient was given medication to manage his pain acutely. Due to the patients newly developed tumor near his left posterior cervical lymph nodes as well as new onset shortness of breath imaging results were obtained.CT of the chest and CT of the abdomen and pelvis with IV contrast: IMPRESSION: 1. LIMITED STUDY, NO EVIDENCE FOR PULMONARY EMBOLISM. 2. MODERATE SIZE RIGHT PLEURAL EFFUSION INCREASED IN SIZE. 3. LARGE MASS SURROUNDING THE DESCENDING THORACIC AORTA INCREASED IN SIZE. 4. LARGE HEPATIC MASS, UNCHANGED IN SIZE WITH RIGHT PORTAL VEIN THROMBOSIS, UNCHANGED. 5. ENLARGED RETROPERITONEAL AND MESENTERIC LYMPHADENOPATHY PROGRESSED FROM THE PRIOR. STUDY. 6. MASS ADJACENT TO THE RIGHT KIDNEY, INCREASED IN SIZE. 7. THICKENING OF THE WALL OF THE PROXIMAL DUODENUM AND JEJUNUM, NEW, NO EVIDENCE FOR. OBSTRUCTION. 8. SOFT TISSUE MASSES IN THE ABDOMINAL AND CHEST CULLEN SEVERAL LESIONS DEMONSTRATING. PROGRESSION FROM THE PRIOR STUDY. 9. SMALL TO MODERATE AMOUNT OF ASCITES, NEW. Due to pulmonary embolism, pneumothorax, aortic dissection, pericarditis, pneumonia, or other acute pathologies were ruled out it was decided that this patient is suffering from a chronic medical condition which may be controlled with his home meds. The patient was discharged to home with instructions to take his prescription medication to control his pain and follow-up with oncology as soon as possible. He is given instructions that if he is unable to arrange transportation to his appointments he may contact Medicare/Medicaid for assistance. The patient was instructed that if his symptoms worsen significantly or if he has new symptoms to return to the emergency Department immediately. At the time of discharge patient was comfortable and had no shortness of breath. - Diagnoses Differential Diagnosis/HQI/PQRI: ACS, Constipation, Other - Metastatic cancer, pulmonary embolism, pneumothorax Provider Diagnoses: Cancer associated pain, Hepatocellular carcinoma Discharge ED - Sign-Out/Discharge Documenting (check all that apply): Patient Departure - Discharge Plan Condition: Stable Disposition: HOME Referrals: Mona Richardson MD [Primary Care Provider] - Deric Torres MD [Medical Doctor] - Additional Instructions: You were seen in the emergency department today due to increased chronic pain. It was determined in the emergency department that there are no acute medical problems at this time. For alleviation of your symptoms take your narcotic prescription as prescribed. For better care of your chronic medical problem I advised use the the oncologist. If your symptoms worsen significantly or you develop new symptoms please return to the emergency Department immediately. - Billing Disposition and Condition Condition: STABLE Disposition: Home - Attestation Statements Provider Attestation: I saw the pt along w the midlevel provider and agree with their documentation as well as my documentation noted below: metastatic liver CA lost follow up, progressive dz, acute pain, improvd with ED tx, w/up neg for acute emergent condition requiring admission, pt will f/up with his onc for o/p mgmt, pt and family agreeable to plan
[2019-10-08] MEDS ORDERED: NS 0.9% 1000 ML** 1,000 ML IV ONE (08:33)
[2019-10-08] MEDS ORDERED: Acetaminophen TAB* 325 MG PO ONE (08:33)
[2019-10-08 09:20] LABS: ABS Basophils 0.4 10^3/ul (0-0.2); ABS Lymphocytes 0.7 10^3/ul (1.0-4.8); ABS Monocytes 0.8 10^3/ul (0-0.8); ABS Neutrophils 9.2 10^3/ul (1.5-7.7); Hematocrit 28 % (42-52); Hemoglobin 8.9 g/dL (14.0-18.0); Lymphocyte % 6.3 %; Mean Corpuscular HGB Conc 32 g/dL (31-36); Mean Corpuscular Hemoglobin 26 pg (27-31); Mean Corpuscular Volume 81 fL (80-94); Mean Platelet Volume 6.5 fL (7.4-10.4); Platelet Count 510 10^3/uL (150-450); Red Blood Count 3.41 10^6 /uL (4.18-5.48); Red Cell Distribution Width 23 % (10-15); White Blood Count 11.2 10^3/uL (3.5-10.8)
[2019-10-08 10:06] LABS: Albumin 3.1 g/dL (3.2-5.2); Anion Gap 5 mmol/L (2-11); CO2 Carbon Dioxide 24 mmol/L (22-32); Calcium 8.2 mg/dL (8.6-10.3); Chloride 103 mmol/L (101-111); Potassium 4.4 mmol/L (3.5-5.0); Sodium 132 mmol/L (135-145)
[2019-10-08 10:13] LABS: ALT 7 U/L (7-52); AST 29 U/L (13-39); Albumin/Globulin Ratio 0.7 (1-3); Alkaline Phosphatase 139 U/L (34-104); BUN/Creatinine Ratio 19.5 (8-20); Blood Urea Nitrogen 17 mg/dL (6-24); C Reactive Protein 41.53 mg/L (<8.01); EGFR African American 106.9 (>60); EGFR Non-African American 88.3 (>60); Globulin 4.6 g/dL (2-4); Glucose 132 mg/dL (70-100); Total Protein 7.7 g/dL (6.4-8.9)
[2019-10-08 10:49] LABS: Urine Appearance Cloudy; Urine Bilirubin Negative (Negative); Urine Blood Negative (Negative); Urine Color Amber; Urine Glucose Negative (Negative); Urine Ketones Trace (Negative); Urine Nitrite Negative (Negative); Urine Protein Negative (Negative); Urine Specific Gravity 1.024 (1.010-1.030); Urine Urobilinogen Positive (Negative)
[2019-10-08] MEDS ORDERED: fentaNYL* 50 MCG/ML 2 ML VIAL (100 MCG VIAL) IV SLOW PU ONE (11:28)
[2019-10-08] MEDS ORDERED: Iohexol 300* (CONTRAST) 10 ML SDV IV ONE (11:54)
[2019-10-08] MEDS ORDERED: Iohexol 350* (CONTRAST) 500 ML MDV IV ONE (12:13)
[2019-10-08 14:09] VITALS: BP 135/90
== END 2019-10-08 14:10 | disposition home or self-care (01) ==
LOC: ED 08:06
DX: G89.3 Neoplasm related pain (acute) (chronic) (principal); C22.7 Other specified carcinomas of liver; J90 Pleural effusion, not elsewhere classified; R18.8 Other ascites; D64.9 Anemia, unspecified; I10 Essential (primary) hypertension; F17.210 Nicotine dependence, cigarettes, uncomplicated; Z79.899 Other long term (current) drug therapy; Z86.19 Personal history of other infectious and parasitic diseases; Z88.5 Allergy status to narcotic agent; Z90.49 Acquired absence of other specified parts of digestive tract
CPT/HCPCS: 36415; 71275; 74177; 80053; 81003; 83605; 83690; 84484; 85025; 85060; 85730; 86140; 93005; 99283; A9270-GY; J3010; Q9967

== ENCOUNTER 2019-10-20 07:27 | Emergency (ER) | payer MEDICARE ==
[2019-10-20] MEDS ORDERED: Morphine 4 MG/ML VIAL (1 ml) 4 MG/ML VIAL IV ONE (07:51)
--- NOTE | 2019-10-20 07:54 | ED ---
Shortness of Breath - HPI Summary HPI Summary: This patient is a 64 year old M with a hx of stage IV lung and liver cancer presenting to ED with a chief complaint of shortness of breath since last night. Patient reports he was watching TV when his symptoms started. Patient reports feeling like this before when he was in the hospital. Patient is on chemotherapy. He reports he is ready to . Patient has never had a chest tube to drain fluids and has never needed oxygen. Patient also reports having mid- chest pain since a week ago. Patient lives by himself and he reports having family in the area. He is accompanied in the room by his next door neighbor. The patient rates the pain 10/10 in severity. Symptoms aggravated by nothing. Symptoms alleviated by nothing. Patient reports subjective fever, chills, leg swelling, suicidal ideation. Medications reviewed. Allergies noted. - History of Current Complaint Chief Complaint: EDShortnessOfBreath Time Seen by Provider: 10/20/19 07:43 Hx Obtained From: Patient Onset/Duration: Sudden Onset, Lasting Hours - Since last night, Still Present Timing: Constant Current Severity: Severe Dyspnea At: Rest Aggravating Factors: Nothing Alleviating Factors: Nothing Associated Signs & Symptoms: Chest Pain Unrelated to Cough, Fever - Subjective, Chills, Edema - Allergy/Home Medications Allergies/Adverse Reactions: Allergies Allergy/AdvReac Type Severity Reaction Status Date / Time oxycodone [From Percocet] Allergy Unknown Verified 10/20/19 07:36 Reaction Details Home Medications: Home Medications HYDROcodone/ACETAMIN 5-325 MG* [[place] 5-325 TAB*] 1 tab PO Q6H PRN 10/20/19 [ History Confirmed 10/20/19] Loperamide CAP* [Imodium CAP*] 2 mg PO Q4H PRN 10/20/19 [History Confirmed 10/20] Morphine Sulfate [Morphine Sulfate ER] 15 mg PO BID PRN 10/20/19 [History Confirmed 10/20/19] PMH/Surg Hx/FS Hx/Imm Hx Endocrine/Hematology History: Reports: Hx Anemia Denies: Hx Diabetes Cardiovascular History: Reports: Hx Angina, Hx Hypertension History: Denies: Hx Renal Disease Sensory History: Denies: Hx Contacts or Glasses, Hx Hearing Aid Opthamlomology History: Denies: Hx Contacts or Glasses Psychiatric History: Denies: Hx Eating Disorder - Cancer History Cancer Type, Location and Year: LIVER/LUNG - Surgical History Surgery Procedure, Year, and Place: [facility] 10+ yrs. SUBCATANEOUS MALIGNANT RUQ ABD MASS EXCISED Hx Anesthesia Reactions: No Infectious Disease History: No Infectious Disease History: Reports: Hx Hepatitis - hep c WAS TREATED Denies: Traveled Outside the [place] in Last 30 Days - Family History Known Family History: Positive: Other - Lung CA (father), Esophageal CA (mother) - Social History Alcohol Use: None Hx Substance Use: No Substance Use Type: Reports: None Hx Tobacco Use: Yes Smoking Status (MU): Current Some Day Smoker Type: Cigarettes Amount Used/How Often: 4-5 /DAY Have You Smoked in the Last Year: Yes Review of Systems Positive: Fever - Subjective, Chills Positive: Chest Pain Positive: Shortness Of Breath Musculoskeletal: Other - Leg swelling Psychological: Other - Suicidal ideation All Other Systems Reviewed And Are Negative: Yes Physical Exam - Summary Physical Exam Summary: Constitutional: Well-developed, Well-nourished, Alert. (-) Distressed Skin: Warm, Dry HENT: Normocephalic; Atraumatic Eyes: Conjunctiva normal Neck: Musculoskeletal ROM normal neck. (-) JVD, (-) Stridor, (-) Tracheal deviation Cardio: Patient initially tachycardic in the low 100s, which improved in the room. Borderline hypoxic 90-92% in the room. Pulmonary/Chest wall: Decreased breath sounds on the right. Abd: Soft, (-) tenderness, (-) Distension, (-) Guarding, (-) Rebound Musculoskeletal: 2+ peripheral edema. Lymph: (-) Cervical adenopathy Neuro: Alert, Oriented x3 Psych: Depressed affect Triage Information Reviewed: Yes Vital Signs On Initial Exam: Initial Vitals Temp Pulse Resp BP Pulse Ox 96.9 F 100 16 126/80 98 10/20/19 07:32 10/20/19 07:32 10/20/19 07:32 10/20/19 07:32 10/20/19 07:32 Vital Signs Reviewed: Yes Procedures - Sedation Patient Received Moderate/Deep Sedation with Procedure: No Diagnostics - Vital Signs Vital Signs Temp Pulse Resp BP Pulse Ox 10/20/19 07:32 96.9 F 100 16 126/80 98 - Laboratory Result Diagrams: 10/20/19 08:18 10/20/19 08:18 Lab Statement: Any lab studies that have been ordered have been reviewed, and results considered in the medical decision making process. - Radiology CXR Radiology Interpretation Completed By: Radiologist Summary of Radiographic Findings: Chest x-ray findings are most consistent with pulmonary edema possibly with small bibasilar pleural effusions. Dr. Villasenor has reviewed this radiology report. - EKG 0820 Cardiac Rate: NL - 94 BPM EKG Rhythm: Sinus Rhythm Summary of EKG Findings: EKG at 0820 revealed NSR at 94 BPM, T-wave inversion in III, no STEMI. Dr. Villasenor has reviewed and interpreted this EKG. - Additional Comments Diagnostic Additional Comments: VQ Lung Scan read by Radiologist: LOW INTERMEDIATE PROBABILITY FOR PULMONARY EMBOLISM. Dr. Villasenor has reviewed this radiology report. Re-Evaluation - Re-Evaluation First Eval Re-Evaluation Time: 09:38 Comment: Patient is refusing CTA since the contrast injection is painful so I will get a CXR. Second Eval Re-Evaluation Time: 10:27 Comment: Discussed results with patient. Patient is not on a blood thinner. He still reports having difficulty breathing. Third Eval Re-Evaluation Time: 12:21 Comment: Discussed VQ scan results with patient. Patient has O2 sat of 95% of RA. He is conversing in full sentences and feels comfortable going home. Patient will be discharged home. Strict return precautions given. Patient understands and agrees with this plan. Course/Dx - Course Course Of Treatment: Patient is here with shortness of breath that started last night. Patient had a similar episode a couple weeks ago and was seen here. [facility] or dissection. Patient did have a pleural effusion at that time. Given patient's cancer and sbreath shortness, PE was worked up again. Patient initially went to get a CTA but started screaming when the contrast was given so the scan was canceled. Patient had a subsequent VQ scan which showed low probability of PE. Patient had a chest x-ray which showed no obvious pleural effusion and only some pulmonary edema. Patient was offered admission but declined. - Diagnoses Provider Diagnoses: Shortness of breath, Tachycardia, Fluid overload, Liver cancer Discharge ED - Sign-Out/Discharge Documenting (check all that apply): Patient Departure - Discharge - Discharge Plan Condition: Stable Disposition: HOME Prescriptions: Albuterol HFA INHALER* [Ventolin HFA Inhaler*] 1 - 2 puff INH Q4H PRN #1 mdi PRN Reason: coughing Patient Education Materials: Pulmonary Edema (ED), Liver Cancer (DC), Tachycardia (ED), Shortness of Breath (ED) Referrals: Mona Richardson MD [Primary Care Provider] - 3 Days Additional Instructions: Follow up with your primary care provider in 1-3 days. Please use the inhaler 1- 2 puffs if you feel like you need it. Return to the ER for worsening or changing symptoms. - Billing Disposition and Condition Condition: STABLE Disposition: Home - Attestation Statements Document Initiated by Terrenceibe: Yes Documenting Scribe: Bryon Suh Provider For Whom Denise is Documenting (Include Credential): Deo Villasenor MD Scribe Attestation: Bryon Sumner, scribed for Deo Villasenor MD on 10/20/19 at 1543. Scribe Documentation Reviewed: Yes Provider Attestation: The documentation as recorded by the Bryon lilly accurately reflects the service I personally performed and the decisions made by me, Deo Villasenor MD Status of Scribe Document: Viewed
[2019-10-20 08:41] LABS: INR 2.44 (0.82-1.09)
[2019-10-20 08:42] LABS: ABS Basophils 0.2 10^3/ul (0-0.2); ABS Lymphocytes 0.7 10^3/ul (1.0-4.8); ABS Neutrophils 12.5 10^3/ul (1.5-7.7); Hematocrit 26 % (42-52); Hemoglobin 8.5 g/dL (14.0-18.0); Lymphocyte % 4.7 %; Mean Corpuscular HGB Conc 32 g/dL (31-36); Mean Corpuscular Hemoglobin 27 pg (27-31); Mean Corpuscular Volume 82 fL (80-94); Mean Platelet Volume 6.9 fL (7.4-10.4); Nucleated Red Blood Cells % 0.2; Platelet Count 581 10^3/uL (150-450); Red Cell Distribution Width 25 % (10-15); White Blood Count 14.3 10^3/uL (3.5-10.8)
[2019-10-20 08:43] LABS: Albumin 2.9 g/dL (3.2-5.2); Albumin/Globulin Ratio 0.6 (1-3); BUN/Creatinine Ratio 14.3 (8-20); EGFR African American 79.9 (>60); Globulin 5.2 g/dL (2-4); Potassium 3.9 mmol/L (3.5-5.0); Total Bilirubin 0.9 mg/dL (0.2-1.0); Total Protein 8.1 g/dL (6.4-8.9)
[2019-10-20] MEDS ORDERED: NS 0.9% 1000 ML** 500 ML IV ONE (08:44)
[2019-10-20] MEDS ORDERED: Iodixanol* (CONTRAST) 320 MG/ML 100 ML SDV IV ONE (09:04)
[2019-10-20 09:30] LABS: Microcytosis 1+
[2019-10-20 12:41] VITALS: BP 122/74
== END 2019-10-20 12:42 | disposition home or self-care (01) ==
LOC: ED 07:27
DX: R06.02 Shortness of breath (principal); R00.0 Tachycardia, unspecified; E87.70 Fluid overload, unspecified; C22.8 Malignant neoplasm of liver, primary, unspecified as to type; C34.90 Malignant neoplasm of unspecified part of unspecified bronchus or lung; F17.210 Nicotine dependence, cigarettes, uncomplicated; D64.9 Anemia, unspecified; I10 Essential (primary) hypertension; Z88.5 Allergy status to narcotic agent; Z79.01 Long term (current) use of anticoagulants; Z79.899 Other long term (current) drug therapy
CPT/HCPCS: 36415; 71045; 78582; 80053; 83605; 83880; 84484; 85025; 85610; 93005; 96361; 96374; 99284; A9540; A9558; J2270

== ENCOUNTER 2019-10-20 14:34 | Emergency (ER) | payer MEDICARE ==
[2019-10-20 14:45] VITALS: BP 144/85
== END 2019-10-20 15:08 | disposition left against medical advice (07) ==
LOC: ED 14:34
DX: R53.1 Weakness (principal); Z53.21 Procedure and treatment not carried out due to patient leaving prior to being seen by health care provider

== ENCOUNTER 2019-10-27 12:16 | Inpatient (IN) | payer MEDICARE ==
--- NOTE | 2019-10-27 12:26 | ED ---
Shortness of Breath - HPI Summary HPI Summary: The patient is a 64 y/o M arriving by ambulance to [facility] with a chief complaint of being unresponsive this morning with hypoxia. Per EMS, the patient had been found unresponsive by his neighbor who called 911. When EMS arrived, the patient has found to be hypoxic with O2 sats in the 50s% which improved with O2 placement, and he also became more responsive. They additionally note that he was tachycardic en route. Blood glucose of 113. Patient states that he does not remember what happened or led to his current presentation. He is alert in the ED. PMHx: anemia, HTN, stage 4 liver cancer. Current some day smoker, no EtOH, no substance use. Medications reviewed. Allergies noted. History is limited to EMS report as patient was unresponsive and unable to recall events prior to being found. - History of Current Complaint Hx Obtained From: EMS Hx From Patient Unobtainable Due To: Other - Level 5 Caveat as patient was unresponsive and unable to recall history Onset/Duration: Resolved Current Severity: Mild - Allergy/Home Medications Allergies/Adverse Reactions: Allergies Allergy/AdvReac Type Severity Reaction Status Date / Time oxycodone [From Percocet] Allergy Unknown Verified 10/27/19 12:28 Reaction Details Home Medications: Home Medications FLUoxetine CAP* [PROzac CAP*] 60 mg PO DAILY 10/27/19 [History Confirmed ] Loperamide CAP* [Imodium CAP*] 2 mg PO Q4H PRN MDD 8 CAPS 10/27/19 [History Confirmed 10/27/19] Morphine Sulfate [Morphabond ER] 15 mg PO BID MDD 2 tabs 10/27/19 [History Confirmed 10/27/19] Prochlorperazine TAB* [Compazine Tab*] 10 mg PO Q6H PRN 10/27/19 [History Confirmed 10/27/19] Prochlorperazine TAB* [Compazine Tab*] 10 mg PO Q6H PRN 10/27/19 [History Confirmed 10/27/19] QUEtiapine TAB* [Seroquel 25 MG TAB*] 50 mg PO BID 10/27/19 [History Confirmed 10/27/19] PMH/Surg Hx/FS Hx/Imm Hx Endocrine/Hematology History: Reports: Hx Anemia Denies: Hx Diabetes Cardiovascular History: Reports: Hx Angina, Hx Hypertension Denies: Hx Hypercholesterolemia History: Denies: Hx Renal Disease Sensory History: Denies: Hx Contacts or Glasses, Hx Hearing Aid Opthamlomology History: Denies: Hx Contacts or Glasses Psychiatric History: Denies: Hx Eating Disorder - Cancer History Cancer Type, Location and Year: LIVER/LUNG stage 4 - Surgical History Surgical History: Yes Surgery Procedure, Year, and Place: [facility] 10+ yrs. SUBCATANEOUS MALIGNANT RUQ ABD MASS EXCISED Hx Anesthesia Reactions: No Infectious Disease History: Reports: Hx Hepatitis - hep c WAS TREATED - Family History Known Family History: Positive: Other - Lung CA (father), Esophageal CA (mother) - Social History Alcohol Use: None Hx Substance Use: No Substance Use Type: Reports: None Hx Tobacco Use: Yes Smoking Status (MU): Current Some Day Smoker Type: Cigarettes Amount Used/How Often: 4-5 /DAY Have You Smoked in the Last Year: Yes Review of Systems Positive: Other - unresponsive Positive: Shortness Of Breath All Other Systems Reviewed And Are Negative: No - Comments Additional Review of Systems Comments: Level 5 Caveat as patient does not recall events of today Physical Exam - Summary Physical Exam Summary: VITAL SIGNS: Reviewed. GENERAL: Patient is a well-developed and nourished male who is lying comfortable in the stretcher. Patient is not in any acute respiratory distress. Warm to touch. HEAD AND FACE: No signs of trauma. No ecchymosis, hematomas or skull depressions. No sinus tenderness. EYES: PERRLA, EOMI x 2, No injected conjunctiva, no nystagmus. EARS: Hearing grossly intact. Ear canals and tympanic membranes are within normal limits. MOUTH: Oropharynx within normal limits. NECK: Supple, trachea is midline, no adenopathy, no JVD, no carotid bruit, no c- spine tenderness, neck with full ROM. CHEST: Symmetric, no tenderness at palpation. LUNGS: Clear to auscultation bilaterally. No wheezing or crackles. CVS: Tachycardic rate and regular rhythm, S1 and S2 present, no murmurs or gallops appreciated. ABDOMEN: Soft, non-tender. No signs of distention. No rebound, no guarding, and no masses palpated. Bowel sounds are normal. EXTREMITIES: FROM in all major joints, no edema, no cyanosis or clubbing. NEURO: Alert but not oriented. No acute neurological deficits. Speech is normal and follows commands. SKIN: Dry and warm. GCS: 14. Triage Information Reviewed: Yes Vital Signs Reviewed: Yes Completion Of Physical Exam Limited Due To: Level 5 - patient does not recall events - Jasvir Coma Scale Best Eye Response: 4 - Spontaneous Best Motor Response: 6 - Obeys Commands Best Verbal Response: 4 - Confused Coma Scale Total: 14 Procedures - Sedation Patient Received Moderate/Deep Sedation with Procedure: No Diagnostics - Laboratory Result Diagrams: 10/27/19 12:43 10/27/19 12:43 Lab Statement: Any lab studies that have been ordered have been reviewed, and results considered in the medical decision making process. - Radiology Chest X-Ray Radiology Interpretation Completed By: Radiologist Summary of Radiographic Findings: Impression: The constellation of findings is most suggestive of pulmonary edema given the significant interval change compared with the October 20, 2019 exam. Severe bronchopneumonia could have a similar appearance. Correlate with clinical assessment. ED physician has reviewed this report. - CT Brain CT CT Interpretation Completed By: Radiologist Summary of CT Findings: Impression: No acute intracranial abnormality. ED physician has reviewed this report. - EKG 1245 Cardiac Rate: Tachycardia - 116 BPM EKG Rhythm: Sinus Tachycardia Summary of EKG Findings: EKG at 1245 reveals sinus tachycardia at [address] elevations. ED physician has reviewed and interpreted this EKG. Course/Dx - Course Assessment/Plan: This patient is a 64-year-old male who presents to the emergency department after he was found unresponsive in his house porch by a neighbor. In the ED course, the patient is alert but not oriented as he seems confused. Patients past medical history significant for: 1. hepatocellular carcinoma, 2. portal vein thrombosis, 3. PE, 4. Pleural effusion, 5. pulmonary edema. EKG shows a sinus tachycardia without any ST elevations. Head CT impression: No acute intracranial pathology. CBC: WBCs 35.9, RBCs 2.86, hemoglobin 7.8, hematocrit 25, platelets 892, absolute neutrophils 31.5, absolute monocytes 3.3. CMP without any significant abnormalities except for sodium 133, carbon dioxide 18, anion gap 12, creatinine 1.36, calcium 7.8, total bilirubin 1.4, AST 54, alkaline phosphatase 132, CPK 260, albumin 2.8. Urinalysis positive for urobilinogen and no UTI. In the ED course, the patient was given cefepime and Levaquin since I believe the patient has pneumonia. The patient also was given a DuoNeb for wheezing. I discussed my physical exam and test results with Dr. Escobar from the hospitalist services, and she agrees to admit the patient to her services. The patient is hemodynamically stable. - Diagnoses Provider Diagnoses: AMS (altered mental status), Pneumonia, Anemia, Sepsis, Elevated troponin - Physician Notifications Discussed Care of Patient With: Daphnie Escobar - hospitalist Time Discussed With Above Provider: 15:30 Instructed by Provider To: Other - I discussed the patients case with Dr. Escobar, and she accepts the patient for admission. At 1625, Dr. Escobar notes that the patient will be admitted by Dr. Stinson, oncology. Discharge ED - Sign-Out/Discharge Documenting (check all that apply): Patient Departure - Patient accepted for admission by Dr. Stinson. - Discharge Plan Condition: Stable Disposition: ADMITTED TO [facility] Referrals: Mona Richardson MD [Primary Care Provider] - - Billing Disposition and Condition Condition: STABLE Disposition: Admitted to [facility] - Attestation Statements Document Initiated by Denise: Yes Documenting Scribe: Daya Richard Provider For Whom Denise is Documenting (Include Credential): Dr. Óscar Soliz MD Scribe Attestation: IDaya, scrcesared for Dr. Óscar Soliz MD on 10/27/19 at 1816. Scribe Documentation Reviewed: Yes Provider Attestation: The documentation as recorded by the Daya lilly accurately reflects the service I personally performed and the decisions made by me, Dr. Óscar Soliz MD Status of Scribe Document: Viewed
[2019-10-27 13:36] LABS: ALT 13 U/L (7-52); AST 54 U/L (13-39); Albumin 2.8 g/dL (3.2-5.2); Albumin/Globulin Ratio 0.6 (1-3); Alkaline Phosphatase 132 U/L (34-104); Anion Gap 12 mmol/L (2-11); BUN/Creatinine Ratio 11.8 (8-20); Blood Urea Nitrogen 16 mg/dL (6-24); CO2 Carbon Dioxide 18 mmol/L (22-32); Calcium 7.8 mg/dL (8.6-10.3); Chloride 103 mmol/L (101-111); Creatine Kinase 260 U/L (10-223); EGFR African American 63.8 (>60); EGFR Non-African American 52.8 (>60); Glucose 83 mg/dL (70-100); Potassium 4.8 mmol/L (3.5-5.0); Sodium 133 mmol/L (135-145); Total Protein 7.8 g/dL (6.4-8.9)
[2019-10-27 13:37] LABS: Acetaminophen < 15 mcg/mL; Alcohol < 10 mg/dL (<10); Salicylate < 2.50 mg/dL (<30)
[2019-10-27 13:44] LABS: Urine Appearance Clear; Urine Bilirubin Negative (Negative); Urine Blood Negative (Negative); Urine Color Yellow; Urine Glucose Negative (Negative); Urine Ketones Trace (Negative); Urine Nitrite Negative (Negative); Urine Protein Negative (Negative); Urine Specific Gravity 1.014 (1.010-1.030); Urine Urobilinogen Positive (Negative)
[2019-10-27 13:47] LABS: TSH (Thyroid Stimulating Horm) 1.82 mcIU/mL (0.34-5.60)
[2019-10-27] MEDS ORDERED: Levofloxacin 750 MG IVPREMIX(* 750 MG/150 ML BAG IVPB ONE (14:00)
[2019-10-27] MEDS ORDERED: Cefepime(*) 2 GM in NS 0.9% 50 ML* 50 ML IVPB ONE (14:00)
[2019-10-27] MEDS ORDERED: Albuterol/Ipratropium NEB.SOL* Albuterol 2.5 MG/Ipratropium 0.5 MG 3 ML INH ONE (14:05)
[2019-10-27] MEDS ORDERED: NS 0.9% 50 ML* 0 ML ONE (14:08)
[2019-10-27] MEDS ORDERED: Cefepime 2 GM in Dextrose(*) 2 GM/50 ML BAG IV ONE (14:30)
[2019-10-27 14:38] LABS: ABS Basophils 0.3 10^3/ul (0-0.2); ABS Lymphocytes 0.8 10^3/ul (1.0-4.8); ABS Monocytes 3.3 10^3/ul (0-0.8); ABS Neutrophils 31.5 10^3/ul (1.5-7.7); ABS Nucleated RBC 0.1 10^3/ul; Hematocrit 25 % (42-52); Hemoglobin 7.8 g/dL (14.0-18.0); Lymphocyte % 2.3 %; Mean Corpuscular HGB Conc 31 g/dL (31-36); Mean Corpuscular Hemoglobin 27 pg (27-31); Mean Corpuscular Volume 88 fL (80-94); Mean Platelet Volume 6.9 fL (7.4-10.4); Nucleated Red Blood Cells % 0.2; Platelet Count 892 10^3/uL (150-450); Red Blood Count 2.86 10^6 /uL (4.18-5.48); Red Cell Distribution Width 30 % (10-15); White Blood Count 35.9 10^3/uL (3.5-10.8)
[2019-10-27 15:02] LABS: Troponin I 0.05 ng/mL (<0.03)
[2019-10-27] MEDS ORDERED: NS 0.9% 1000 ML** 1,000 ML IV ONE (15:06)
[2019-10-27] MEDS ORDERED: Morphine 4 MG/ML VIAL (1 ml) 4 MG/ML VIAL IV ONE (15:49)
[2019-10-27] MEDS ORDERED: Iohexol 300* (CONTRAST) 10 ML SDV IV ONE (17:22)
[2019-10-27] MEDS ORDERED: Piperacillin/Tazobac ADVAN(*) 3.375 GM in NS 0.9% 100 ML* 100 ML IVPB ONE (17:45)
[2019-10-27] MEDS ORDERED: methylPREDNISolone 125 MG* 2 ML VIAL IV ONE (17:45)
[2019-10-27] MEDS ORDERED: NS 0.9% 1000 ML** 1,000 ML IV SCH (17:45)
[2019-10-27] MEDS ORDERED: Loperamide CAP* 2 MG PO PRN (17:53)
[2019-10-27] MEDS ORDERED: Prochlorperazine TAB* 10 MG PO PRN (17:53)
[2019-10-27] MEDS ORDERED: Ondansetron INJ* 2 MG/ML VIAL IV PRN (17:55)
[2019-10-27] MEDS ORDERED: Zosyn per Pharmacy* NOTE FOLLOW UP SCH (18:00)
[2019-10-27 19:11] LABS: Troponin I 0.06 ng/mL (<0.03)
[2019-10-27] MEDS ORDERED: Azithromycin 500 mg/250 ml NS 500 MG/250 ML BAG IVPB SCH (19:30)
[2019-10-27] MEDS: Morphine INJ* 2 MG/ML 1 ML SYRINGE (TWO MG - NEW SYRINGE VERSION) IV PRN (20:28)
[2019-10-27] MEDS: ZOSYN 3.375 GM Q8H per EXTENDED INFUSION IVPB SCH ×2 (21:41)
[2019-10-27] MEDS: Morphine TAB Extended Release (*) 15 MG TAB.ER PO SCH (21:42)
[2019-10-27] MEDS: Apixaban* 5 MG TAB PO SCH (21:42)
[2019-10-27] MEDS: QUEtiapine TAB* 25 MG PO SCH (21:46)
[2019-10-28 04:31] LABS: Hematocrit 24 % (42-52); Hemoglobin 7.3 g/dL (14.0-18.0); Mean Corpuscular HGB Conc 31 g/dL (31-36); Mean Corpuscular Hemoglobin 27 pg (27-31); Mean Corpuscular Volume 87 fL (80-94); Mean Platelet Volume 6.8 fL (7.4-10.4); Platelet Count 762 10^3/uL (150-450); Red Blood Count 2.72 10^6 /uL (4.18-5.48); Red Cell Distribution Width 31 % (10-15); White Blood Count 27.2 10^3/uL (3.5-10.8)
[2019-10-28 04:43] LABS: ALT 11 U/L (7-52); AST 53 U/L (13-39); Albumin 2.1 g/dL (3.2-5.2); Albumin/Globulin Ratio 0.5 (1-3); Alkaline Phosphatase 94 U/L (34-104); Anion Gap 7 mmol/L (2-11); BUN/Creatinine Ratio 14.5 (8-20); Blood Urea Nitrogen 18 mg/dL (6-24); CO2 Carbon Dioxide 20 mmol/L (22-32); Calcium 7.1 mg/dL (8.6-10.3); Chloride 106 mmol/L (101-111); EGFR Non-African American 58.7 (>60); Globulin 4.4 g/dL (2-4); Glucose 123 mg/dL (70-100); Potassium 4.7 mmol/L (3.5-5.0); Sodium 133 mmol/L (135-145); Total Protein 6.5 g/dL (6.4-8.9)
[2019-10-28 04:46] LABS: Troponin I 0.04 ng/mL (<0.03)
[2019-10-28 05:01] LABS: ABS Basophils 0.2 10^3/ul (0-0.2); ABS Lymphocytes 0.7 10^3/ul (1.0-4.8); ABS Monocytes 1.1 10^3/ul (0-0.8); ABS Neutrophils 25.1 10^3/ul (1.5-7.7); ABS Nucleated RBC 0.1 10^3/ul; Lymphocyte % 2.4 %; Nucleated Red Blood Cells % 0.2
[2019-10-28 05:02] LABS: Polychromasia 2+
[2019-10-28 05:06] LABS: Schistocytes 1+
[2019-10-28] MEDS: ZOSYN 3.375 GM Q8H per EXTENDED INFUSION IVPB SCH ×4 (06:14→14:10)
[2019-10-28] MEDS: Albuterol/Ipratropium NEB.SOL* Albuterol 2.5 MG/Ipratropium 0.5 MG 3 ML INH SCH ×4 (07:11→12:27)
[2019-10-28] MEDS: Morphine INJ* 2 MG/ML 1 ML SYRINGE (TWO MG - NEW SYRINGE VERSION) IV PRN ×4 (07:12→22:08)
[2019-10-28] MEDS: Acetaminophen TAB* 325 MG PO PRN ×2 (07:12→12:59)
[2019-10-28] MEDS: Morphine TAB Extended Release (*) 15 MG TAB.ER PO SCH ×2 (07:59→21:34)
[2019-10-28] MEDS: QUEtiapine TAB* 25 MG PO SCH (07:59)
[2019-10-28] MEDS: Apixaban* 5 MG TAB PO SCH (08:00)
[2019-10-28] MEDS ORDERED: methylPREDNISolone 125 MG* 2 ML VIAL IV SCH (09:00)
[2019-10-28] MEDS ORDERED: FLUoxetine CAP* 20 MG PO SCH (09:00)
[2019-10-28] MEDS ORDERED: Albuterol/Ipratropium NEB.SOL* Albuterol 2.5 MG/Ipratropium 0.5 MG 3 ML INH PRN (12:27)
[2019-10-28] MEDS ORDERED: Morphine INJ* 2 MG/ML 1 ML SYRINGE (TWO MG - NEW SYRINGE VERSION) IV PRN (14:31)
[2019-10-28] MEDS ORDERED: LORazepam TAB(*) 0.5 MG PO PRN (14:32)
[2019-10-28] MEDS ORDERED: Morphine INJ* 4 MG/ML 1 ML SYRINGE (NEW SYRINGE VERSION) IV PRN (14:32)
--- NOTE | 2019-10-28 15:23 | ECHO ---
*[facility], [place]* [place] [address] Fax #: [phone] Transthoracic Echocardiogram Patient: Jacky Hoang : 1955 Study Date: 10/28/2019 Age: 64 Gender: M HR: 101 bpm Height: 71 in /180.3 cm BSA: 1.92 m^2 Weight: 159.7 lb /72.6 kg BMI: 22.3 kg/m^2 *Roller Mechanic: Bhavani Smith [facility] *Referring Physician: * Jaimie DuffReading Physician: * Pratima Yusuf MD Indications: Resp Insufficiency. History: Liver cancer. Risk factors: Current tobacco use. Hypertension. Conclusions Summary: - The patient was tachycardic throughout the study. - Left ventricle: The cavity size is normal, appears small/underfilled. Wall thickness is moderately increased. Systolic function is vigorous. The estimated ejection fraction is 60-65%. - Right ventricle: Systolic function is hyperdynamic. - Atrial septum: A PFO is demonstrated by color Doppler. - Mitral valve: There is trace regurgitation, possibly more. - Tricuspid valve: There is mild-moderate regurgitation. - Pulmonary arteries: Systolic pressure is at the upper limits of normal. The peak pressure during systole by Doppler is 32.0 mm Hg. - Evidence of 2 vessels taking off from the left coronary cusp ot the aortic valve. Differential includes no left main with separate orifice for left anterior descending coronary and circumflex coronary arteries and more. - No prior echocardiogram to compare. Study data: Transthoracic echocardiogram. Procedure: Transthoracic echocardiography was performed. Image quality was good. Complete 2D, spectral Doppler, and color flow Doppler. Location: ICU Patient status: Inpatient. Patient room number: 10. Rhythm: Tachycardia. Findings Left ventricle: The cavity size is normal. Wall thickness is moderately increased. Systolic function is vigorous. The estimated ejection fraction is 60-65%. Wall motion is normal; there are no regional wall motion abnormalities. Left ventricular diastolic function parameters are normal for the patient's age. Right ventricle: The cavity size is normal. Systolic function is hyperdynamic. Left atrium: The atrium is normal in size. Right atrium: The atrium is normal in size. Atrial septum: A PFO is demonstrated by color Doppler. Mitral valve: The leaflets are mildly thickened. There is no evidence of stenosis. There is trace regurgitation. Aortic valve: The valve is trileaflet. The leaflets are mildly thickened. There is no evidence of stenosis. There is no significant regurgitation. Tricuspid valve: The leaflets are normal thickness. There is no evidence of stenosis. There is mild-moderate regurgitation. Pulmonic valve: The leaflets are normal thickness. There is no evidence of stenosis. There is trace regurgitation. Aorta: The aortic root appears normal. The aortic arch appears normal. Pericardium: There is no significant pericardial effusion. Pulmonary arteries: The main pulmonary artery is normal-sized. Systolic pressure is at the upper limits of normal. Systemic veins: Inferior vena cava: The vessel is normal in size. There is (< 50%) respiratory change in the IVC dimension. Measurements Left ventricle Value Ref Aortic valve continued Value Ref DANIEL, LAX 4.5 cm 4.2 - 5.8 Peak v, S 1.42 m/sec ----- ESD, LAX 2.5 cm 2.5 - 4.0 VTI, S 22.3 cm ----- FS, LAX (H) 45 % 25 - 43 Mean grad, S 4.0 mm Hg ----- PW, ED, LAX (H) 1.1 cm 0.6 - 1.0 Peak grad, S 8.0 mm Hg ----- EF (H) 76 % 52 - 72 E', lat shaq, TDI 12.5 cm/sec >=10.0 Mitral valve Value R ef E/e', lat shaq, 5 Peak E 0.6 m/sec ---- - TDI Peak A 0.83 m/sec ----- E', med shaq, TDI 7.9 cm/sec >=7.0 Decel time 135 ms - ---- E/e', med shaq, 8 Peak E/A ratio 0.7 ---- - TDI E', avg, TDI 10.2 cm/sec Pulmonic valve Value Ref E/e', avg, TDI 6 <=14 Peak v, S 0.82 m/sec - ---- Peak grad, S 3.0 mm Hg ----- LVOT Value Ref Peak unruly, S 1.16 m/sec Tricuspid valve Value Ref Peak grad, S 5 mm Hg TR peak v 2.6 m/sec <=2.8 Mean grad, S 3 mm Hg Peak RV-RA grad, S 27 mm Hg ----- Ventricular septum Value Ref Aortic root Value Ref IVS, ED (H) 1.2 cm 0.6 - 1.0 Root diam 2.9 cm <4.1 Right ventricle Value Ref Ascending aorta Value Ref DANIEL, LAX 2.6 cm AAo AP diam, S 2.4 cm ----- Pressure, S 35 mm Hg Aortic arch Value Ref Left atrium Value Ref Arch diam 2.8 cm ----- AP dim, ES 3.70 cm 3.00 - 4.00 Decending aorta Value Ref ML dim, A4C 3.8 cm Maricarmen peak unruly 0.96 m/sec ----- SI dim, A4C 6.0 cm Vol/bsa, ES, 1-p 23 ml/m^2 12 - 37 Pulmonary artery Value Ref A4C Pressure, S 32.0 mm Hg ----- Right atrium Value Ref Inferior vena cava Value Ref SI dim, ES 3.6 cm 3.4 - 5.3 Diam 1.8 cm ----- ML dim, ES, A4C 3.5 cm 2.6 - 4.4 Estimated RAP 8 mm Hg Aortic valve Value Ref Shaq diam, ED 2.3 cm Legend: (L) and (H) blake values outside specified reference range. Prepared and electronically signed by Pratima Yusuf MD 10/28/2019 15:23
[2019-10-28 19:57] VITALS: BP 132/66
[2019-10-28] MEDS ORDERED: Lorazepam PYXIS KEY PRN (20:56)
[2019-10-28] MEDS ORDERED: LORazepam INJ* 2 MG/ML 1 ML VIAL IV PUSH PRN (20:56)
[2019-10-28] MEDS ORDERED: Nicotine PATCH 14 MG/24 HR* PATCH TRANSDERM SCH (21:00)
--- NOTE | 2019-10-28 21:11 | PN ---
Progress Note - Progress Note Date of Service: 10/28/19 Note: Event Note: 64 year old man with stage 4 liver cancer, on oncology service, admitted w/ pneumonia, effusion. He is on comfort care, may be enrolled in hospice in 2-5 days. He is DNR/DNI. He is a heavy smoker. He is stating "I'm leaving" tonight in ICU. Came to see patient, spoke to both sons. No official HCP signed. is . Patient was agitated, climbed out of chair, took off O2 for 1 minute. He was then tripoding, fell to floor, on hands and knees, no injury. He was lifted back into chair, given morphine for resp distress, O2 re-applied. Ativan changed to PO. Added nicotine replacement, WD may contribute to agitation. Currently does not have capacity (or physical capability) to leave AMA. Sons advised to say "we are not driving you home" when he wakes up. If he is talking in a few hours, and wants to discuss leaving AMA, I will reassess capacity.
--- NOTE | 2019-10-28 22:58 | PN ---
Progress Note - Progress Note Date of Service: 10/28/19 Note: Note: Patient is 64 year old man w/ metastatic liver cancer, DNR, on comfort care. Called to see patient, no pulse. Checked apical pulse, carotids, no pulse. No spontaneous respirations. Family was at bedside, they are aware. No arrangements yet. Nurse to call organ donation hotline. No autopsy requested. Time of 10:30PM, examined at 10:50PM.
[2019-10-29] MEDS ORDERED: Nicotine Patch Removal NOTE PATCH OFF SCH (21:00)
== END 2019-10-28 22:20 | disposition expired | DRG 871 ==
LOC: ED 12:16 → ICU 17:45
PROVIDERS: ADMIT Internal Medicine Hematology & Oncology; ATTEND Internal Medicine Hematology & Oncology
DX: A41.9 Sepsis, unspecified organism (principal); J18.9 Pneumonia, unspecified organism; I81 Portal vein thrombosis; C22.8 Malignant neoplasm of liver, primary, unspecified as to type; C78.00 Secondary malignant neoplasm of unspecified lung; N17.9 Acute kidney failure, unspecified; I10 Essential (primary) hypertension; B19.20 Unspecified viral hepatitis C without hepatic coma; F17.210 Nicotine dependence, cigarettes, uncomplicated; D64.9 Anemia, unspecified; R09.02 Hypoxemia; R65.20 Severe sepsis without septic shock; K74.69 Other cirrhosis of liver; Z51.5 Encounter for palliative care; Z88.6 Allergy status to analgesic agent
CPT/HCPCS: 36415; 70450; 71045; 71260; 80053; 80320; 80329; 81003; 82140; 82550; 83605; 83735; 84443; 84484; 85025; 85060; 85652; 86140; 87040; 87641; 93005; 93306; 94640; 96365; 99285; A9270-GY; G0480; J0456; J0692; J2060; J2270; J2543; J2930; Q9967